=== PATIENT | male | born 1940 ===

== ENCOUNTER 2018-08-30 09:39 | Day surgery (SDC) | payer BC ==
--- NOTE | 2018-09-01 19:22 | CARDCATH ---
PROCEDURE DATE: 08/30/2018 PROCEDURES: 1. Left heart catheterization. 2. Coronary angiogram. CLINICAL INDICATIONS: 1. Unstable angina. 2. Coronary artery disease. 3. Atrial fibrillation. 4. Hypertension. 5. Hyperlipidemia. 6. Acute on chronic diastolic heart failure. REFERRING PHYSICIAN: Anai Pressley MD PERFORMING PHYSICIAN: Marco A Ross MD DESCRIPTION OF PROCEDURE: After informed consent, the patient was prepped and draped in the usual sterile fashion. Lidocaine 2% was given on the right groin for local anesthesia. Using micropuncture technique, a 6-[place]ian sheath was introduced into the right common femoral artery. A JR4 6-[place]ian diagnostic catheter crossed into left ventricle. LV and diastolic pressures measured. Contrast injected and LV angiogram was done. Then the catheter was pulled back across the aortic valve. Gradient across the aortic valve was measured. Then, the same catheter engaged in his right coronary artery. Contrast injected and right coronary angiogram was done. Then, the catheter was exchanged to 6-[place]ian JL4 diagnostic catheter. The catheter was engaged into left main coronary artery. Contrast injected and left coronary angiogram was done. The patient tolerated the procedure well. Post procedure, Perclose suture deployed in the right groin with excellent hemostasis. FINDINGS OF THE CATHETERIZATION: 1. Left main coronary artery is patent. 2. LAD has a mid 99% critical stenosis. Distal LAD has a long 95% stenosis. Diagonal branches are patent. 3. Left circumflex and obtuse marginal branches are patent. 4. Right coronary artery is dominant. R2 right coronary artery has 50% stenosis. Mid right coronary artery has a calcific 85% stenosis. Distal right coronary and PDA branches are patent. IMPRESSION: 1. Critical 2-vessel coronary artery disease as described above. 2. Decreased left ventricular function by left ventricular angiography estimated left ventricular ejection fraction is 40% to 45%. Anterolateral wall hypokinesis. EDP is 20. No gradient across the aortic valve. RECOMMENDATIONS: Recommend coronary intervention of both LAD and right coronary artery. Transfer the patient to intensive care unit on IV heparin drip. Marco A Ross MD
== END 2018-08-30 09:40 | disposition still patient (30) ==
LOC: C.CATHLAB 09:39
PROVIDERS: ATTEND Internal Medicine Cardiovascular Disease
DX: I25.110 Atherosclerotic heart disease of native coronary artery with unstable angina pectoris (principal); I48.91 Unspecified atrial fibrillation; I50.33 Acute on chronic diastolic (congestive) heart failure; E78.5 Hyperlipidemia, unspecified; I11.0 Hypertensive heart disease with heart failure

== ENCOUNTER 2018-08-30 09:58 | Inpatient (IN) | payer MEDICARE, BC ==
[2018-08-30 10:09] VITALS: BMI 28.1
--- NOTE | 2018-08-30 10:17 | C.PDOC ---
History Of Present Illness 78 year old male presents to the ED for evaluation of worsening chest pain for the past several weeks with associated shortness of breath. Patient is currently asymptomatic. Reports he normally has exertional and intermittent chest pain but this time is more prolonged and stronger. Patient is scheduled today to have cardiac catheterization and he was walking through the parking lot [employer] when the chest pain started. Notes he has a history of irregular heartbeat. Patient takes Nitro TID PRN. Denies increased usage of medication compared to usual. NPO since last night. Time Seen by Provider: 08/30/18 10:13 Chief Complaint (Nursing): Chest Pain History Per: Patient History/Exam Limitations: no limitations Onset/Duration Of Symptoms: Hrs Current Symptoms Are (Timing): Still Present Past Medical History Reviewed: Historical Data, Nursing Documentation, Vital Signs - Medical History PMH: Diabetes, HTN, Hypercholesterolemia Denies: Chronic Kidney Disease Other Surgeries: Hx of surgeries Family History: States: Hypertension - Social History Hx Tobacco Use: No Hx Alcohol Use: Yes Hx Substance Use: No - Immunization History Hx Tetanus Toxoid Vaccination: No Hx Influenza Vaccination: No Hx Pneumococcal Vaccination: No Review Of Systems Except As Marked, All Systems Reviewed And Found Negative. Constitutional: Negative for: Fever, Chills Cardiovascular: Positive for: Chest Pain Respiratory: Positive for: Shortness of Breath. Negative for: Cough Gastrointestinal: Negative for: Nausea, Vomiting Physical Exam - Physical Exam Appears: Non-toxic, No Acute Distress Skin: Warm, Dry, No Rash Head: Normacephalic Eye(s): bilateral: Normal Inspection Nose: Normal Oral Mucosa: Moist Neck: Normal ROM, Supple Chest: Symmetrical Cardiovascular: Rhythm Regular Respiratory: No Rales, No Rhonchi, No Wheezing, Other (NARD) Gastrointestinal/Abdominal: Soft, No Tenderness Extremity: Bilateral: Atraumatic, Normal Color And Temperature, Normal ROM Neurological/Psych: Oriented x3, Normal Speech Gait: Steady Extremity: Right: No Effort Against [place] ED Course And Treatment ECG: Interpreted By Me ECG Rhythm: Atrial Fibrillation ECG Interpretation: No Acute Changes Rate From EC O2 Sat by Pulse Oximetry: 100 (RA) Pulse Ox Interpretation: Normal Progress - Re-Evaluation Re-evaluation Note: 08/30/18 10:15 D/W ROCIO WILL IN ER. STATES NOTIFIED PT PMD DR EASTON TO BE ADMITTED, FOR CARDIAC CATH. ASA, PLAVIX 08/30/18 10:[address] THORNE, D/W DR MONTALVO BUT IS AWAY. STATES TO ADMIT TO HOSPITAL, DR BEVERLY NOTIFIED BY DR THORNE AND ACCEPTS FOR ADMISSION. - Data Reviewed Data Reviewed: Lab, Diagnostic imaging, EKG, Old records Medical Decision Making Medical Decision Making: Plan - Bloodwork - EKG - Aspirin 324mg PO - Plavix 300mg PO Disposition Counseled Patient/Family Regarding: Studies Performed, Diagnosis - Disposition Disposition: HOSPITALIZED Disposition Time: 10:17 Condition: STABLE Forms: [employer] (Belarusian) - POA Present On Arrival: None - Clinical Impression Clinical Impression: Unstable angina - Scribe Statement The provider has reviewed the documentation as recorded by the Scribe Luz Alcaraz All medical record entries made by the Christelleibe were at my direction and personally dictated by me. I have reviewed the chart and agree that the record accurately reflects my personal performance of the history, physical exam, medical decision making, and the department course for this patient. I have also personally directed, reviewed, and agree with the discharge instructions and disposition.
--- NOTE | 2018-08-30 10:30 | C.PDOC ---
History Of Present Illness 78 year old male presents to the ED for evaluation of worsening chest pain for the past several weeks with associated shortness of breath. Patient is currently asymptomatic. Reports he normally has exertional and intermittent chest pain but this time is more prolonged and stronger. 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 Notes he has a history of irregular heartbeat. Patient takes Nitro TID PRN. Denies increased usage of medication compared to usual. NPO since last night. Time Seen by Provider: 08/30/18 10:13 Chief Complaint (Nursing): Chest Pain History Per: Patient History/Exam Limitations: no limitations Onset/Duration Of Symptoms: Hrs Current Symptoms Are (Timing): Still Present Past Medical History Reviewed: Historical Data, Nursing Documentation, Vital Signs - Medical History PMH: Diabetes, HTN, Hypercholesterolemia Denies: Chronic Kidney Disease Surgical History: Denies: No Surg Hx Other Surgeries: Hx of surgeries Family History: States: Hypertension - Social History Hx Tobacco Use: No Hx Alcohol Use: Yes Hx Substance Use: No - Immunization History Hx Tetanus Toxoid Vaccination: No Hx Influenza Vaccination: No Hx Pneumococcal Vaccination: No Review Of Systems Except As Marked, All Systems Reviewed And Found Negative. Constitutional: Negative for: Fever, Chills Cardiovascular: Positive for: Chest Pain Respiratory: Positive for: Shortness of Breath. Negative for: Cough Gastrointestinal: Negative for: Nausea, Vomiting Physical Exam - Physical Exam Appears: Non-toxic, No Acute Distress Skin: Warm, Dry, No Rash Head: Normacephalic Eye(s): bilateral: Normal Inspection Nose: Normal Oral Mucosa: Moist Neck: Normal ROM, Supple Chest: Symmetrical Cardiovascular: No Murmur Respiratory: No Rales, No Rhonchi, No Wheezing, Other (NARD) Gastrointestinal/Abdominal: Soft, No Tenderness Extremity: Bilateral: Atraumatic, Normal Color And Temperature, Normal ROM Neurological/Psych: Oriented x3, Normal Speech Gait: Steady Disposition - Disposition Forms: [employer] (Hebrew) - Scribe Statement The provider has reviewed the documentation as recorded by the Scribe Luz Alcaraz All medical record entries made by the Scribe were at my direction and personally dictated by me. I have reviewed the chart and agree that the record accurately reflects my personal performance of the history, physical exam, medical decision making, and the department course for this patient. I have also personally directed, reviewed, and agree with the discharge instructions and disposition.
--- NOTE | 2018-08-30 10:53 | CP.PCM.CON ---
<Dotty Way - Last Filed: 08/30/18 12:55> History of Present Illness - History of Present Illness History of Present Illness: CARDIOLOGY CONSULT NOTE This is a 78 year old male with past medical history of unstable angina with previous abnormal stress test (08/06/18), atrial fibrillation, hypertension, systolic heart failure with LVEF 40%, type 2 diabetes, former heavy tobacco user, hypothyroidism, and BPH, referred to our service by ED physician Dr. Saunders, for unstable angina. Patient was ambulating from parking lot to the hospital when he started to have chest pain; he is scheduled for cardiac catherization today at [address] Ross. EKG did not show ST elevations or depressions, 1st troponin negative. 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 Patient reported his chest pain felt better after receiving medication and once he rested. Denied any current chest pain, shortness of breath, palpitations, dizziness, or nausea. PMHx: As noted above PSHx: Appendectomy All: Nuclear dye SHx: Used to smoke 1 PPD for 40 years, denied alcohol or illicit drug use FHx: Unremarkable PMD: Dr. Pressley (asked patient to be admitted to hospitalist service) Review of Systems - Constitutional Constitutional: absent: Chills, Fever - EENT Eyes: absent: Blurred Vision, Change in Vision Ears: absent: Ear Pain, Tinnitus Nose/Mouth/Throat: absent: Nasal Congestion, Sore Throat, Neck Pain - Cardiovascular Cardiovascular: Chest Pain with Activity, Irregular Heart Rhythm. absent: Diaphoresis, Dyspnea, Dyspnea on Exertion, Edema, Pain Radiating to Arm/Neck/Jaw, Palpitations, Pedal Edema, Radiating Pain, Rapid Heart Rate - Gastrointestinal Gastrointestinal: absent: Abdominal Pain, Diarrhea, Nausea, Vomiting - Genitourinary Genitourinary: Urinary Frequency. absent: Dysuria, Hematuria Additional comments: hx BPH - Musculoskeletal Musculoskeletal: absent: Abnormal Gait, Back Pain, Muscle Weakness - Neurological Neurological: absent: Abnormal Gait, Dizziness, Numbness, Syncope, Weakness - Psychiatric Psychiatric: absent: Anxiety, Suicidal Ideation - Hematologic/Lymphatic Hematologic: absent: Easy Bleeding, Easy Bruising, Lymphadenopathy Past Patient History - Infectious Disease Hx of Infectious Diseases: None - Past Medical History & Family History Past Medical History?: Yes - Past Social History Smoking Status: Former Smoker - CARDIAC Hx Hypercholesterolemia: Yes Hx Hypertension: Yes - PULMONARY Hx Respiratory Disorders: No - NEUROLOGICAL Hx Neurological Disorder: No - HEENT Hx HEENT Problems: No - RENAL Hx Chronic Kidney Disease: No - ENDOCRINE/METABOLIC Hx Endocrine Disorders: Yes Hx Diabetes Mellitus Type 2: Yes - HEMATOLOGICAL/ONCOLOGICAL Hx Blood Disorders: No - INTEGUMENTARY Hx Dermatological Problems: No - MUSCULOSKELETAL/RHEUMATOLOGICAL Hx Falls: No - GASTROINTESTINAL Hx Gastrointestinal Disorders: No - GENITOURINARY/GYNECOLOGICAL Hx Genitourinary Disorders: No - PSYCHIATRIC Hx Substance Use: No - SURGICAL HISTORY Hx Surgeries: Yes Hx Arteriovenous Shunt: Yes Hx Orthopedic Surgery: Yes Other/Comment: multiple hx of surgery. abdominal x 2. foot surgery due to CA, melanoma. appendectomy - ANESTHESIA Hx Anesthesia: Yes Hx Anesthesia Reactions: No Hx Malignant Hyperthermia: No Meds Allergies/Adverse Reactions: Allergies Allergy/AdvReac Type Severity Reaction Status Date / Time nuclear dye allergy Allergy Uncoded 08/30/18 10:08 Physical Exam - Constitutional Appears: No Acute Distress - Head Exam Head Exam: NORMAL INSPECTION, NORMOCEPHALIC - Eye Exam Eye Exam: EOMI, Normal appearance, PERRL - ENT Exam ENT Exam: Mucous Membranes Moist - Respiratory Exam Respiratory Exam: Clear to Auscultation Bilateral, NORMAL BREATHING PATTERN. absent: Decreased Breath Sounds - Cardiovascular Exam Cardiovascular Exam: Irregular Rhythm. absent: Systolic Murmur - GI/Abdominal Exam GI & Abdominal Exam: Normal Bowel Sounds, Soft. absent: Distended, Tenderness - Extremities Exam Extremities exam: Positive for: normal inspection, pedal pulses present. Negative for: pedal edema, tenderness - Neurological Exam Neurological exam: Alert, Oriented x3 - Psychiatric Exam Psychiatric exam: Normal Affect, Normal Mood - Skin Skin Exam: Dry, Intact, Normal Color, Warm Results - Vital Signs Recent Vital Signs: Last Vital Signs Temp 97.9 F 08/30/18 10:16 Pulse 98 H 08/30/18 10:16 Resp 20 08/30/18 10:16 BP 174/94 H 08/30/18 10:16 Pulse Ox 100 08/30/18 10:36 - Labs Result Diagrams: 08/30/18 11:07 08/30/18 11:07 Assessment & Plan - Assessment and Plan (Free Text) Plan: Unstable Angina Comorbidities: hypertension, type 2 diabetes, systolic heart failure with LVEF 40%, atrial fibrillation, hypothyroidism Imaging: - ECHO (04/2018): systolic heart failure with LVEF 40-45% - Nuclear Stress Test: abnormal noted 08/06/18 - Repeat ECHO: ordered, pending results - Carotid US: ordered, pending results - S/P catherization 08/30 Management: - ASA, Plavix, Coreg, Cozaar, Crestor - Hold off on any AC, due to elevated INR; continue to trend INR - Monitor right groin, for possible bleeding - Bedrest 6 hours, 1/2 NS @ 60cc/hr for 12 hours; monitor renal function - S/P catherization: LVEF 40%, 99% LAD, 80% RCA - Plan for PCI placement, date and time TBD Case discussed with Dr. Ross, Dotty Way DO, PGY2 <Marco A Ross - Last Filed: 08/30/18 13:46> Meds - Medications Medications: Current Medications Alprazolam (Xanax) 0.25 mg PO TID PRN PRN Reason: Anxiety Stop: 09/06/18 12:26 Aspirin (Ecotrin) 81 mg PO DAILY SHANELLE Carvedilol (Coreg) 12.5 mg PO BID SHANELLE Clopidogrel Bisulfate (Plavix) 75 mg PO DAILY SHANELLE Dextrose (Dextrose 50% Inj) 0 ml IV STAT PRN; Protocol PRN Reason: Hypoglycemia Protocol Dextrose (Glutose 15) 0 gm PO ONCE PRN; Protocol PRN Reason: Hypoglycemia Protocol Glimepiride (Amaryl) 1 mg PO DAILY SHANELLE Glucagon (Glucagen Diagnostic Kit) 0 mg IM STAT PRN; Protocol PRN Reason: Hypoglycemia Protocol Dextrose (Dextrose 5% In Water 1000 Ml) 1,000 mls @ 0 mls/hr IV .Q0M PRN; Protocol PRN Reason: Hypoglycemia Protocol Sodium Chloride (Sodium Chloride 0.45%) 1,000 mls @ 60 mls/hr IV .[id number] SHANELLE Stop: 08/31/18 01:01 Insulin Human Regular (Novolin R) 0 unit SC ACHS SHANELLE; Protocol Levothyroxine Sodium (Synthroid) 125 mcg PO DAILY@0630 SHANELLE Losartan Potassium (Cozaar) 100 mg PO DAILY SHANELLE Pantoprazole Sodium (Protonix Ec Tab) 40 mg PO DAILY SHANELLE Rosuvastatin Calcium (Crestor) 10 mg PO HS SHANELLE Results - Vital Signs Recent Vital Signs: Last Vital Signs Temp 97.8 F 08/30/18 11:13 Pulse 92 H 08/30/18 11:13 Resp 18 08/30/18 11:13 BP 148/90 08/30/18 11:13 Pulse Ox 96 08/30/18 11:13 - Labs Result Diagrams: 08/30/18 11:07 08/30/18 11:07 Labs: Laboratory Results - last 24 hr 08/30/18 08/30/18 08/30/18 11:07 11:07 11:07 WBC 6.2 RBC 5.39 Hgb 14.6 D Hct 44.0 MCV 81.7 D MCH 27.1 MCHC 33.1 RDW 15.1 H Plt Count 93 L MPV 8.8 Neut % (Auto) 61.8 Lymph % (Auto) 10.4 L [place] % (Auto) 26.0 H Eos % (Auto) 0.6 Baso % (Auto) 1.2 Neut # (Auto) 3.8 Lymph # (Auto) 0.6 L [place] # (Auto) 1.6 H Eos # (Auto) 0.0 Baso # (Auto) 0.1 Neutrophils % (Manual) 61 Lymphocytes % (Manual) 10 L Monocytes % (Manual) 28 H Eosinophils % (Manual) 1 Platelet Estimate Slightly decreased L RBC Morphology Normal PT 28.4 H INR 2.6 APTT 53 H Sodium 141 Potassium 4.4 Chloride 100 Carbon Dioxide 31 H Anion Gap 15 BUN 14 Creatinine 0.6 L Est GFR ( Amer) > 60 Est GFR (Non-Af Amer) > 60 POC Glucose (mg/dL) Random Glucose 159 H Hemoglobin A1c Calcium 9.1 Total Bilirubin 0.9 AST 28 ALT 26 Alkaline Phosphatase 109 Troponin I < 0.0120 Total Protein 7.6 Albumin 4.7 Globulin 2.9 Albumin/Globulin Ratio 1.6 Triglycerides 157 H Cholesterol 104 LDL Cholesterol Direct 65 HDL Cholesterol 24 L TSH 3rd Generation 1.37 Blood Type Antibody Screen 08/30/18 08/30/18 08/30/18 11:07 11:26 13:18 WBC RBC Hgb Hct MCV MCH MCHC RDW Plt Count MPV Neut % (Auto) Lymph % (Auto) [place] % (Auto) Eos % (Auto) Baso % (Auto) Neut # (Auto) Lymph # (Auto) [place] # (Auto) Eos # (Auto) Baso # (Auto) Neutrophils % (Manual) Lymphocytes % (Manual) Monocytes % (Manual) Eosinophils % (Manual) Platelet Estimate RBC Morphology PT INR APTT Sodium Potassium Chloride Carbon Dioxide Anion Gap BUN Creatinine Est GFR ( Amer) Est GFR (Non-Af Amer) POC Glucose (mg/dL) 156 H Random Glucose Hemoglobin A1c 6.9 H Calcium Total Bilirubin AST ALT Alkaline Phosphatase Troponin I Total Protein Albumin Globulin Albumin/Globulin Ratio Triglycerides Cholesterol LDL Cholesterol Direct HDL Cholesterol TSH 3rd Generation Blood Type O POSITIVE Antibody Screen Negative Assessment & Plan - Assessment and Plan (Free Text) Plan: Patient seen and evaluated s/p cardiac cath Findings as above D/W the patient
--- NOTE | 2018-08-30 10:58 | CP.PCM.HP ---
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 He takes Nitrates TID for the pain which temporaily relives the pain but he is worried this is getting worse. PMD: Dr. 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, BPH, Afib PSH: Appendectomy, GI related surgery for obstruction Allergies: NKDA Fam Hx: Unknown, pt has not been in contact with his family in a while Social Hx: Denies tobacco, alcohol, drug use Present on Admission - Present on Admission Any Indicators Present on Admission: No Review of Systems - Hematologic/Lymphatic Additional comments: - Constitutional Constitutional: absent: Chills, Fever - EENT Eyes: absent: Blurred Vision, Change in Vision Ears: absent: Ear Pain, Tinnitus Nose/Mouth/Throat: absent: Nasal Congestion, Sore Throat, Neck Pain - Cardiovascular Cardiovascular: Chest Pain with Activity, Irregular Heart Rhythm. absent: Diaphoresis, Dyspnea, Dyspnea on Exertion, Edema, Pain Radiating to Arm/Neck/Jaw, Palpitations, Pedal Edema, Radiating Pain, Rapid Heart Rate - Gastrointestinal Gastrointestinal: absent: Abdominal Pain, Diarrhea, Nausea, Vomiting - Genitourinary Genitourinary: Urinary Frequency. absent: Dysuria, Hematuria Additional comments: hx BPH - Musculoskeletal Musculoskeletal: absent: Abnormal Gait, Back Pain, Muscle Weakness - Neurological Neurological: absent: Abnormal Gait, Dizziness, Numbness, Syncope, Weakness - Psychiatric Psychiatric: absent: Anxiety, Suicidal Ideation - Hematologic/Lymphatic Hematologic: absent: Easy Bleeding, Easy Bruising, Lymphadenopathy Past Patient History - Infectious Disease Hx of Infectious Diseases: None - Past Medical History & Family History Past Medical History?: Yes - Past Social History Smoking Status: Former Smoker - CARDIAC Hx Hypercholesterolemia: Yes Hx Hypertension: Yes - PULMONARY Hx Respiratory Disorders: No - NEUROLOGICAL Hx Neurological Disorder: No - HEENT Hx HEENT Problems: No - RENAL Hx Chronic Kidney Disease: No - ENDOCRINE/METABOLIC Hx Endocrine Disorders: Yes Hx Diabetes Mellitus Type 2: Yes - HEMATOLOGICAL/ONCOLOGICAL Hx Blood Disorders: No - INTEGUMENTARY Hx Dermatological Problems: No - MUSCULOSKELETAL/RHEUMATOLOGICAL Hx Falls: No - GASTROINTESTINAL Hx Gastrointestinal Disorders: No - GENITOURINARY/GYNECOLOGICAL Hx Genitourinary Disorders: No - PSYCHIATRIC Hx Substance Use: No - SURGICAL HISTORY Hx Surgeries: Yes Hx Arteriovenous Shunt: Yes Hx Orthopedic Surgery: Yes Other/Comment: multiple hx of surgery. abdominal x 2. foot surgery due to CA, melanoma. appendectomy - ANESTHESIA Hx Anesthesia: Yes Hx Anesthesia Reactions: No Hx Malignant Hyperthermia: No Meds Allergies/Adverse Reactions: Allergies Allergy/AdvReac Type Severity Reaction Status Date / Time nuclear dye allergy Allergy Uncoded 08/30/18 10:08 Physical Exam - Constitutional Appears: Well, Non-toxic - Head Exam Head Exam: ATRAUMATIC, NORMAL INSPECTION - Eye Exam Eye Exam: EOMI - ENT Exam ENT Exam: Mucous Membranes Moist, Normal Exam - Neck Exam Neck exam: Positive for: Normal Inspection - Respiratory Exam Respiratory Exam: NORMAL BREATHING PATTERN. absent: Wheezes - Cardiovascular Exam Cardiovascular Exam: Irregular Rhythm, +S1, +S2 - GI/Abdominal Exam GI & Abdominal Exam: absent: Distended, Firm, Guarding, Tenderness - Extremities Exam Extremities exam: Positive for: normal inspection - Back Exam Back exam: NORMAL INSPECTION - Neurological Exam Neurological exam: Alert, CN II-XII Intact, Normal Gait, Oriented x3 - Psychiatric Exam Psychiatric exam: Normal Affect, Normal Mood - Skin Skin Exam: Normal Color Results - Vital Signs Recent Vital Signs: Last Vital Signs Temp 97.9 F 08/30/18 10:16 Pulse 98 H 08/30/18 10:16 Resp 20 08/30/18 10:16 BP 174/94 H 08/30/18 10:16 Pulse Ox 100 08/30/18 10:42 - Labs Result Diagrams: 08/30/18 11:07 08/30/18 11:07 Assessment & Plan - Assessment and Plan (Free Text) Assessment: This is a 78 year old male with past medical history of unstable angina with previous abnormal stress test (08/06/18), atrial fibrillation, hypertension, systolic heart failure with LVEF 40%, type 2 diabetes, former heavy tobacco user, hypothyroidism, and BPH, presenting with unstable angina. Patient is s/p cardiac catheterization on 08/30/2018. Plan: Unstable Angina - Cardiology consulted, Dr. Ross - ECHO (04/2018): systolic heart failure with LVEF 40-45% - Nuclear Stress Test: abnormal noted 08/06/18 - Troponin: <0.01 - Continue to trend Troponin - Repeat ECHO: ordered, pending results - Carotid US: ordered, pending results - S/P catherization 08/30 LAD, RCA occlusions - ASA 81mg PO QD - Plavix 74mg PO QD - Coreg 12.5 PO BID - Bedrest 6 hours, 1/2 NS @ 60cc/hr for 12 hours; monitor renal function S/P catherization - LVEF 40%, 99% LAD, 80% RCA - Plan for PCI placement, date and time TBD - Monitor right groin, for possible bleeding Hypertension - Cozaar 100mg PO QD - Continue to monitor - NS @ 60 mls/hr DM-2 - ISS - Accuchecks ACHS - Hypoglycemia protocol Hypothyroidism - Synthroid 125mg PO QD Hyperlipidemia - Crestor 10mg PO HS - Triglycerides: 157 Prophylaxis: - Protonix 40mg PO QD - SCD's - Hold off on any AC, due to elevated INR
[2018-08-30 11:18] LABS: BASO # 0.1 K/uL (0.0-0.2); BASO % 1.2 % (0.0-2.0); EOS % 0.6 % (0.0-4.0); LYMPH # 0.6 K/uL (1.0-4.3); LYMPH % 10.4 % (20.0-40.0); MEAN CELL VOLUME 81.7 fL (80.0-94.0); MEAN CORPUSCULAR HEMOGLOBIN 27.1 pg (27.0-31.0); MEAN CORPUSCULAR HGB CONC 33.1 g/dL (33.0-37.0); MEAN PLATELET VOLUME 8.8 fL (7.2-11.7); MONO # 1.6 K/uL (0.0-0.8); NEUT # 3.8 K/uL (1.8-7.0); NEUT % 61.8 % (50.0-75.0); NRBC % 0.4 % (0.0-2.0); RBC 5.39 Mil/uL (4.40-5.90); RED CELL DISTRIBUTION WIDTH 15.1 % (11.5-14.5); WHITE BLOOD COUNT 6.2 K/uL (4.8-10.8)
[2018-08-30] MEDS ORDERED: Iodixanol 320 MG/ML 100 ML BOTTLE IV ONE ×2 (11:22→11:28)
[2018-08-30 11:24] LABS: HEMOGLOBIN 14.6 g/dL (12.0-18.0); PLATELET COUNT 93 K/uL (130-400)
[2018-08-30] MEDS ORDERED: Lidocaine 2% MPF (5 ml) Inj ONE (11:28)
[2018-08-30] MEDS ORDERED: DiphenhydrAMINE 50 mg/ml Inj IVP ONE (11:30)
--- NOTE | 2018-08-30 11:34 | RAD ---
Date of service: 08/30/2018 HISTORY: chest pain COMPARISON: Comparison made with prior chest radiograph 06/17/2015. FINDINGS: LUNGS: Persistent elevation right hemidiaphragm possibly due to eventration. There is mild left basilar atelectasis and with questionable chronic pleural thickening. Minimal right basilar atelectasis. PLEURA: No significant pleural effusion identified, no pneumothorax apparent. CARDIOVASCULAR: Minor aortic atherosclerotic calcification present. Heart appears mildly enlarged the no pulmonary vascular congestion. OSSEOUS STRUCTURES: No significant abnormalities. VISUALIZED UPPER ABDOMEN: Normal. OTHER FINDINGS: None. IMPRESSION: Persistent elevation right hemidiaphragm possibly due to eventration. There is mild left basilar atelectasis and with questionable chronic pleural thickening. Minimal right basilar atelectasis.
[2018-08-30 11:36] LABS: ALB/GLOB RATIO 1.6 (1.0-2.1); ALBUMIN 4.7 g/dL (3.5-5.0); ALT/SGPT 26 U/L (21-72); AST/SGOT 28 U/L (17-59); BLOOD UREA NITROGEN 14 mg/dL (9-20); CALCIUM 9.1 mg/dl (8.6-10.4); GFR NON-AFRICAN AMERICAN > 60
[2018-08-30 11:47] LABS: INR 2.6; PROTHROMBIN TIME 28.4 SECONDS (9.7-12.2)
[2018-08-30] MEDS ORDERED: Midazolam 2 MG/2 ML VIAL ONE (11:48)
[2018-08-30 11:56] LABS: EOSINOPHIL 1 % (0-4); LYMPHOCYTE 10 % (20-40); MONOCYTE 28 % (0-10); NEUTROPHIL 61 % (50-75); TOTAL CELLS COUNTED 100
[2018-08-30] MEDS ORDERED: Phytonadione 10 mg/ml Inj (Adult) IV STA (11:56)
[2018-08-30 11:58] LABS: PLATELET ESTIMATE SLIGHTLY DECREASED (NORMAL)
[2018-08-30] MEDS ORDERED: Labetalol 5mg/ml (4ml) ONE (12:02)
[2018-08-30] MEDS ORDERED: Phytonadione 10 MG in Sodium Chloride 0.9% 50 ML IV ONE (12:15)
[2018-08-30] MEDS ORDERED: Dextrose 50% SYRINGE Inj (50 ml) IV PRN (12:27)
[2018-08-30 12:28] LABS: HDL CHOLESTEROL 24 mg/dL (30-70); LDL CHOLESTEROL 65 mg/dL (0-129)
[2018-08-30] MEDS ORDERED: Glucagon Recombinant 1 mg Inj IM PRN (12:28)
[2018-08-30] MEDS ORDERED: Sodium Chloride 0.45% 1,000 ML IV SCH (13:00)
--- NOTE | 2018-08-30 16:59 | CP.PCM.CON ---
<Adonay Cowan - Last Filed: 08/30/18 16:56> History of Present Illness - History of Present Illness History of Present Illness: PGY-1 ICU consult note for Dr. Esvin Emmanuel CC: Unstable angina This is a 78 year old male with past medical history of unstable angina with previous abnormal stress test (08/06/18), atrial fibrillation, hypertension, systolic heart failure with LVEF 40%, type 2 diabetes, former heavy tobacco user, hypothyroidism, and BPH, presenting with unstable angina. Patient was ambulating from parking lot to the hospital when he started to have chest pain; patient had cardiac catherization today at [address] Ross. EKG did not show ST elevations or depressions, 1st troponin negative. Patient was given aspirin and plavix, and was brought up to the research laboratory manager. Patient reported his chest pain felt better after receiving medication and once he rested. Denied any current chest pain, shortness of breath, palpitations, abdominal pain, dizziness, nausea, comiting, diarrhea, or urinary symptoms. 12 points ROS reviewed, negative except stated in HPI. PMHx: unstable angina with previous abnormal stress test (08/06/18), atrial fibrillation, hypertension, systolic heart failure with LVEF 40%, type 2 diabetes, former heavy tobacco user, hypothyroidism, and BPH PSHx: Appendectomy All: Nuclear dye SHx: Used to smoke 1 PPD for 40 years, denied alcohol or illicit drug use FHx: Unremarkable PMD: Dr. Pressley Review of Systems - Review of Systems All systems: reviewed and no additional remarkable complaints except Past Patient History - Infectious Disease Hx of Infectious Diseases: None - Past Medical History & Family History Past Medical History?: Yes - Past Social History Smoking Status: Former Smoker - CARDIAC Hx Hypercholesterolemia: Yes Hx Hypertension: Yes - PULMONARY Hx Respiratory Disorders: No - NEUROLOGICAL Hx Neurological Disorder: No - HEENT Hx HEENT Problems: No - RENAL Hx Chronic Kidney Disease: No - ENDOCRINE/METABOLIC Hx Endocrine Disorders: Yes Hx Diabetes Mellitus Type 2: Yes - HEMATOLOGICAL/ONCOLOGICAL Hx Blood Disorders: No - INTEGUMENTARY Hx Dermatological Problems: No - MUSCULOSKELETAL/RHEUMATOLOGICAL Hx Falls: No - GASTROINTESTINAL Hx Gastrointestinal Disorders: No - GENITOURINARY/GYNECOLOGICAL Hx Genitourinary Disorders: No - PSYCHIATRIC Hx Substance Use: No - SURGICAL HISTORY Hx Surgeries: Yes Hx Arteriovenous Shunt: Yes Hx Orthopedic Surgery: Yes Other/Comment: multiple hx of surgery. abdominal x 2. foot surgery due to CA, melanoma. appendectomy - ANESTHESIA Hx Anesthesia: Yes Hx Anesthesia Reactions: No Hx Malignant Hyperthermia: No Meds Allergies/Adverse Reactions: Allergies Allergy/AdvReac Type Severity Reaction Status Date / Time nuclear dye allergy Allergy Uncoded 08/30/18 10:08 - Medications Medications: Current Medications Alprazolam (Xanax) 0.25 mg PO TID PRN PRN Reason: Anxiety Stop: 09/06/18 12:26 Aspirin (Ecotrin) 81 mg PO DAILY [facility] Carvedilol (Coreg) 12.5 mg PO BID [facility] Clopidogrel Bisulfate (Plavix) 75 mg PO DAILY [facility] Dextrose (Dextrose 50% Inj) 0 ml IV STAT PRN; Protocol PRN Reason: Hypoglycemia Protocol Dextrose (Glutose 15) 0 gm PO ONCE PRN; Protocol PRN Reason: Hypoglycemia Protocol Glimepiride (Amaryl) 1 mg PO DAILY [facility] Glucagon (Glucagen Diagnostic Kit) 0 mg IM STAT PRN; Protocol PRN Reason: Hypoglycemia Protocol Dextrose (Dextrose 5% In Water 1000 Ml) 1,000 mls @ 0 mls/hr IV .Q0M PRN; Protocol PRN Reason: Hypoglycemia Protocol Sodium Chloride (Sodium Chloride 0.45%) 1,000 mls @ 60 mls/hr IV .[id number] [facility] Stop: 08/31/18 01:01 Last Admin: 08/30/18 15:00 Dose: 60 mls/hr Insulin Human Regular (Novolin R) 0 unit SC ACHS [facility]; Protocol Levothyroxine Sodium (Synthroid) 125 mcg PO DAILY@0630 [facility] Losartan Potassium (Cozaar) 100 mg PO DAILY [facility] Pantoprazole Sodium (Protonix Ec Tab) 40 mg PO DAILY [facility] Rosuvastatin Calcium (Crestor) 10 mg PO HS [facility] Physical Exam - Additional Findings Additional findings: - Constitutional Appears: No Acute Distress - Head Exam Head Exam: NORMAL INSPECTION, NORMOCEPHALIC - Eye Exam Eye Exam: EOMI, Normal appearance, PERRL - ENT Exam ENT Exam: Mucous Membranes Moist - Respiratory Exam Respiratory Exam: Clear to Auscultation Bilateral, NORMAL BREATHING PATTERN. absent: Decreased Breath Sounds - Cardiovascular Exam Cardiovascular Exam: Irregular Rhythm. absent: Systolic Murmur - GI/Abdominal Exam GI & Abdominal Exam: Normal Bowel Sounds, Soft. absent: Distended, Tenderness - Extremities Exam Extremities exam: Positive for: normal inspection, pedal pulses present. Negative for: pedal edema, tenderness - Neurological Exam Neurological exam: Alert, Oriented x3 - Psychiatric Exam Psychiatric exam: Normal Affect, Normal Mood - Skin Skin Exam: Dry, Intact, Normal Color, Warm Results - Vital Signs Recent Vital Signs: Last Vital Signs Temp 97.8 F 08/30/18 11:13 Pulse 86 08/30/18 15:13 Resp 16 08/30/18 15:13 BP 148/90 08/30/18 11:13 Pulse Ox 94 L 08/30/18 15:13 - Labs Result Diagrams: 08/30/18 11:07 08/30/18 11:07 Labs: Laboratory Results - last 24 hr 08/30/18 08/30/18 08/30/18 11:07 11:07 11:07 WBC 6.2 RBC 5.39 Hgb 14.6 D Hct 44.0 MCV 81.7 D MCH 27.1 MCHC 33.1 RDW 15.1 H Plt Count 93 L MPV 8.8 Neut % (Auto) 61.8 Lymph % (Auto) 10.4 L [place] % (Auto) 26.0 H Eos % (Auto) 0.6 Baso % (Auto) 1.2 Neut # (Auto) 3.8 Lymph # (Auto) 0.6 L [place] # (Auto) 1.6 H Eos # (Auto) 0.0 Baso # (Auto) 0.1 Neutrophils % (Manual) 61 Lymphocytes % (Manual) 10 L Monocytes % (Manual) 28 H Eosinophils % (Manual) 1 Platelet Estimate Slightly decreased L RBC Morphology Normal PT 28.4 H INR 2.6 APTT 53 H Sodium 141 Potassium 4.4 Chloride 100 Carbon Dioxide 31 H Anion Gap 15 BUN 14 Creatinine 0.6 L Est GFR ( Amer) > 60 Est GFR (Non-Af Amer) > 60 POC Glucose (mg/dL) Random Glucose 159 H Hemoglobin A1c Calcium 9.1 Total Bilirubin 0.9 AST 28 ALT 26 Alkaline Phosphatase 109 Troponin I < 0.0120 Total Protein 7.6 Albumin 4.7 Globulin 2.9 Albumin/Globulin Ratio 1.6 Triglycerides 157 H Cholesterol 104 LDL Cholesterol Direct 65 HDL Cholesterol 24 L TSH 3rd Generation 1.37 Blood Type Antibody Screen 08/30/18 08/30/18 08/30/18 11:07 11:26 13:18 WBC RBC Hgb Hct MCV MCH MCHC RDW Plt Count MPV Neut % (Auto) Lymph % (Auto) [place] % (Auto) Eos % (Auto) Baso % (Auto) Neut # (Auto) Lymph # (Auto) [place] # (Auto) Eos # (Auto) Baso # (Auto) Neutrophils % (Manual) Lymphocytes % (Manual) Monocytes % (Manual) Eosinophils % (Manual) Platelet Estimate RBC Morphology PT INR APTT Sodium Potassium Chloride Carbon Dioxide Anion Gap BUN Creatinine Est GFR ( Amer) Est GFR (Non-Af Amer) POC Glucose (mg/dL) 156 H Random Glucose Hemoglobin A1c 6.9 H Calcium Total Bilirubin AST ALT Alkaline Phosphatase Troponin I Total Protein Albumin Globulin Albumin/Globulin Ratio Triglycerides Cholesterol LDL Cholesterol Direct HDL Cholesterol TSH 3rd Generation Blood Type O POSITIVE Antibody Screen Negative 08/30/18 16:24 WBC RBC Hgb Hct MCV MCH MCHC RDW Plt Count MPV Neut % (Auto) Lymph % (Auto) [place] % (Auto) Eos % (Auto) Baso % (Auto) Neut # (Auto) Lymph # (Auto) [place] # (Auto) Eos # (Auto) Baso # (Auto) Neutrophils % (Manual) Lymphocytes % (Manual) Monocytes % (Manual) Eosinophils % (Manual) Platelet Estimate RBC Morphology PT INR APTT Sodium Potassium Chloride Carbon Dioxide Anion Gap BUN Creatinine Est GFR ( Amer) Est GFR (Non-Af Amer) POC Glucose (mg/dL) 259 H Random Glucose Hemoglobin A1c Calcium Total Bilirubin AST ALT Alkaline Phosphatase Troponin I Total Protein Albumin Globulin Albumin/Globulin Ratio Triglycerides Cholesterol LDL Cholesterol Direct HDL Cholesterol TSH 3rd Generation Blood Type Antibody Screen Assessment & Plan - Assessment and Plan (Free Text) Assessment: This is a 78 year old male with past medical history of unstable angina with previous abnormal stress test (08/06/18), atrial fibrillation, hypertension, systolic heart failure with LVEF 40%, type 2 diabetes, former heavy tobacco user, hypothyroidism, and BPH, presenting with unstable angina. Patient is s/p cardiac catheterization on 08/30/2018. Plan: Neuro: - Patient is AAO X 3 Cardiovascular: Unstable Angina - Cardiology consulted, Dr. Ross - ECHO (04/2018): systolic heart failure with LVEF 40-45% - Nuclear Stress Test: abnormal noted 08/06/18 - Troponin: <0.01 - Continue to trend Troponin - Repeat ECHO: ordered, pending results - Carotid US: ordered, pending results - S/P catherization 08/30 - ASA 81mg PO QD - Plavix 74mg PO QD - Coreg 12.5 PO BID - Bedrest 6 hours, 1/2 NS @ 60cc/hr for 12 hours; monitor renal function - S/P catherization: LVEF 40%, 99% LAD, 80% RCA - Plan for PCI placement, date and time TBD Pulm: - No acute issues GI: - No acute issues Renal: Hypertension - Cozaar 100mg PO QD - Continue to monitor - NS @ 60 mls/hr Endocrine: Hypothyroidism - Synthroid 125mg PO QD Hyperlipidemia - Crestor 10mg PO HS - Triglycerides: 157 DM-2 - ISS - Accuchecks ACHS - Hypoglycemia protocol Heme: Therapeutic INR - INR:2.6 - Continue to monitor INR Skin: Bleeding - S/p cardiac cath - Monitor right groin, for possible bleeding Prophylaxis: - Protonix 40mg PO QD - SCD's - Hold off on any AC, due to elevated INR Case discussed with Dr. Esvin Cowan, PGY-1 <Daya Emmanuel - Last Filed: 08/31/18 10:37> Meds - Medications Medications: Current Medications Alprazolam (Xanax) 0.25 mg PO TID PRN PRN Reason: Anxiety Stop: 09/06/18 12:26 Last Admin: 08/30/18 22:24 Dose: 0.25 mg Aspirin (Ecotrin) 81 mg PO DAILY [facility] Last Admin: 08/31/18 10:18 Dose: 81 mg Benzocaine/Menthol (Cepacol Sore Throat) 1 cinthia MT Q4H PRN PRN Reason: Sore Throat Last Admin: 08/30/18 21:06 Dose: 1 cinthia Carvedilol (Coreg) 12.5 mg PO BID [facility] Last Admin: 08/31/18 10:18 Dose: 12.5 mg Clopidogrel Bisulfate (Plavix) 75 mg PO DAILY [facility] Last Admin: 08/31/18 10:18 Dose: 75 mg Dextrose (Dextrose 50% Inj) 0 ml IV STAT PRN; Protocol PRN Reason: Hypoglycemia Protocol Dextrose (Glutose 15) 0 gm PO ONCE PRN; Protocol PRN Reason: Hypoglycemia Protocol Glimepiride (Amaryl) 1 mg PO DAILY [facility] Last Admin: 08/31/18 10:17 Dose: 1 mg Glucagon (Glucagen Diagnostic Kit) 0 mg IM STAT PRN; Protocol PRN Reason: Hypoglycemia Protocol Dextrose (Dextrose 5% In Water 1000 Ml) 1,000 mls @ 0 mls/hr IV .Q0M PRN; Protocol PRN Reason: Hypoglycemia Protocol Insulin Human Regular (Novolin R) 0 unit SC [facility]; Protocol Last Admin: 08/30/18 22:24 Dose: 2 units Levothyroxine Sodium (Synthroid) 125 mcg PO DAILY@0630 [facility] Last Admin: 08/31/18 07:22 Dose: 125 mcg Losartan Potassium (Cozaar) 100 mg PO DAILY [facility] Last Admin: 08/31/18 10:18 Dose: 100 mg Nitroglycerin (Nitrostat Sl Tab) 0.4 mg SL Q5M PRN PRN Reason: Pain, Mild (1-3) Pantoprazole Sodium (Protonix Ec Tab) 40 mg PO DAILY [facility] Last Admin: 08/31/18 10:18 Dose: 40 mg Rosuvastatin Calcium (Crestor) 10 mg PO HS [facility] Last Admin: 08/30/18 22:24 Dose: 10 mg Tamsulosin HCl (Flomax) 0.4 mg PO DAILY [facility] Last Admin: 08/31/18 10:18 Dose: 0.4 mg Results - Vital Signs Recent Vital Signs: Last Vital Signs Temp 98.2 F 08/30/18 15:00 Pulse 86 08/31/18 07:45 Resp 20 08/31/18 07:45 BP 148/67 08/31/18 10:18 Pulse Ox 98 08/31/18 07:45 - Labs Result Diagrams: 08/31/18 06:23 08/31/18 03:29 Labs: Laboratory Results - last 24 hr 08/30/18 08/30/18 08/30/18 11:07 11:07 11:07 WBC 6.2 RBC 5.39 Hgb 14.6 D Hct 44.0 MCV 81.7 D MCH 27.1 MCHC 33.1 RDW 15.1 H Plt Count 93 L MPV 8.8 Neut % (Auto) 61.8 Lymph % (Auto) 10.4 L [place] % (Auto) 26.0 H Eos % (Auto) 0.6 Baso % (Auto) 1.2 Neut # (Auto) 3.8 Lymph # (Auto) 0.6 L [place] # (Auto) 1.6 H Eos # (Auto) 0.0 Baso # (Auto) 0.1 Neutrophils % (Manual) 61 Lymphocytes % (Manual) 10 L Monocytes % (Manual) 28 H Eosinophils % (Manual) 1 Platelet Estimate Slightly decreased L Large Platelets RBC Morphology Normal Polychromasia Anisocytosis (manual) PT 28.4 H INR 2.6 APTT 53 H Sodium 141 Potassium 4.4 Chloride 100 Carbon Dioxide 31 H Anion Gap 15 BUN 14 Creatinine 0.6 L Est GFR ( Amer) > 60 Est GFR (Non-Af Amer) > 60 POC Glucose (mg/dL) Random Glucose 159 H Hemoglobin A1c Calcium 9.1 Phosphorus Magnesium Total Bilirubin 0.9 AST 28 ALT 26 Alkaline Phosphatase 109 Total Creatine Kinase CK-MB (Mass) Troponin I < 0.0120 Total Protein 7.6 Albumin 4.7 Globulin 2.9 Albumin/Globulin Ratio 1.6 Triglycerides 157 H Cholesterol 104 LDL Cholesterol Direct 65 HDL Cholesterol 24 L Free T4 TSH 3rd Generation 1.37 Blood Type Antibody Screen 08/30/18 08/30/18 08/30/18 11:07 11:26 13:18 WBC RBC Hgb Hct MCV MCH MCHC RDW Plt Count MPV Neut % (Auto) Lymph % (Auto) [place] % (Auto) Eos % (Auto) Baso % (Auto) Neut # (Auto) Lymph # (Auto) [place] # (Auto) Eos # (Auto) Baso # (Auto) Neutrophils % (Manual) Lymphocytes % (Manual) Monocytes % (Manual) Eosinophils % (Manual) Platelet Estimate Large Platelets RBC Morphology Polychromasia Anisocytosis (manual) PT INR APTT Sodium Potassium Chloride Carbon Dioxide Anion Gap BUN Creatinine Est GFR ( Amer) Est GFR (Non-Af Amer) POC Glucose (mg/dL) 156 H Random Glucose Hemoglobin A1c 6.9 H Calcium Phosphorus Magnesium Total Bilirubin AST ALT Alkaline Phosphatase Total Creatine Kinase CK-MB (Mass) Troponin I Total Protein Albumin Globulin Albumin/Globulin Ratio Triglycerides Cholesterol LDL Cholesterol Direct HDL Cholesterol Free T4 TSH 3rd Generation Blood Type O POSITIVE Antibody Screen Negative 08/30/18 08/30/18 08/30/18 16:24 18:40 18:40 WBC RBC Hgb Hct MCV MCH MCHC RDW Plt Count MPV Neut % (Auto) Lymph % (Auto) [place] % (Auto) Eos % (Auto) Baso % (Auto) Neut # (Auto) Lymph # (Auto) [place] # (Auto) Eos # (Auto) Baso # (Auto) Neutrophils % (Manual) Lymphocytes % (Manual) Monocytes % (Manual) Eosinophils % (Manual) Platelet Estimate Large Platelets RBC Morphology Polychromasia Anisocytosis (manual) PT INR APTT Sodium Potassium Chloride Carbon Dioxide Anion Gap BUN Creatinine Est GFR ( Amer) Est GFR (Non-Af Amer) POC Glucose (mg/dL) 259 H Random Glucose Hemoglobin A1c Calcium Phosphorus Magnesium Total Bilirubin AST ALT Alkaline Phosphatase Total Creatine Kinase 30 L CK-MB (Mass) 0.84 Troponin I < 0.0120 Total Protein Albumin Globulin Albumin/Globulin Ratio Triglycerides Cholesterol LDL Cholesterol Direct HDL Cholesterol Free T4 1.65 TSH 3rd Generation Blood Type Antibody Screen 08/30/18 08/30/18 08/31/18 21:24 22:37 03:29 WBC RBC Hgb Hct MCV MCH MCHC RDW Plt Count MPV Neut % (Auto) Lymph % (Auto) [place] % (Auto) Eos % (Auto) Baso % (Auto) Neut # (Auto) Lymph # (Auto) [place] # (Auto) Eos # (Auto) Baso # (Auto) Neutrophils % (Manual) Lymphocytes % (Manual) Monocytes % (Manual) Eosinophils % (Manual) Platelet Estimate Large Platelets RBC Morphology Polychromasia Anisocytosis (manual) PT 16.7 H D INR 1.5 D APTT Sodium 137 Potassium 4.0 Chloride 99 Carbon Dioxide 24 Anion Gap 17 BUN 20 Creatinine 0.7 L Est GFR ( Amer) > 60 Est GFR (Non-Af Amer) > 60 POC Glucose (mg/dL) 367 H Random Glucose 327 H Hemoglobin A1c Calcium 8.2 L Phosphorus 2.8 Magnesium 1.9 Total Bilirubin 0.7 AST 21 ALT 26 Alkaline Phosphatase 86 Total Creatine Kinase 39 L CK-MB (Mass) 0.80 Troponin I < 0.0120 Total Protein 6.3 Albumin 3.8 Globulin 2.5 Albumin/Globulin Ratio 1.5 Triglycerides Cholesterol LDL Cholesterol Direct HDL Cholesterol Free T4 TSH 3rd Generation Blood Type Antibody Screen 08/31/18 06:23 WBC 10.3 D RBC 4.60 Hgb 12.6 D Hct 37.6 MCV 81.7 MCH 27.4 MCHC 33.6 RDW 15.2 H Plt Count 91 L MPV 9.0 Neut % (Auto) 82.5 H Lymph % (Auto) 4.1 L [place] % (Auto) 13.0 H Eos % (Auto) 0.0 Baso % (Auto) 0.4 Neut # (Auto) 8.5 H Lymph # (Auto) 0.4 L [place] # (Auto) 1.3 H Eos # (Auto) 0.0 Baso # (Auto) 0.0 Neutrophils % (Manual) 83 H Lymphocytes % (Manual) 6 L Monocytes % (Manual) 11 H Eosinophils % (Manual) Platelet Estimate Decreased L Large Platelets Present RBC Morphology Polychromasia Slight Anisocytosis (manual) Slight PT INR APTT Sodium Potassium Chloride Carbon Dioxide Anion Gap BUN Creatinine Est GFR ( Amer) Est GFR (Non-Af Amer) POC Glucose (mg/dL) Random Glucose Hemoglobin A1c Calcium Phosphorus Magnesium Total Bilirubin AST ALT Alkaline Phosphatase Total Creatine Kinase CK-MB (Mass) Troponin I Total Protein Albumin Globulin Albumin/Globulin Ratio Triglycerides Cholesterol LDL Cholesterol Direct HDL Cholesterol Free T4 TSH 3rd Generation Blood Type Antibody Screen Assessment & Plan - Assessment and Plan (Free Text) Plan: [facility] Deb s/p cardiac cath -pending PCI -continue to treat as per cardiology -patient remains hemodynamically stable above resident docuemnts my management an physical exam -transfer to tele in 24 hours - Date & Time Date: 08/30/18 Time: 10:37
[2018-08-30] MEDS ORDERED: Nitroglycerin 50mg in D5W 50 MG/250 ML BOTTLE IV SCH (18:15)
[2018-08-30] MEDS: (Novolin R) Insulin Human Regular 100 units/ml vial SC SCH ×2 (18:54→22:24)
[2018-08-30 19:11] LABS: CK-MB 0.84 ng/mL (0.0-3.38)
[2018-08-30] MEDS: Benzocaine/Menthol (Cepacol) Lozenge MT PRN (21:06)
[2018-08-30 22:49] LABS: INR 1.5; PROTHROMBIN TIME 16.7 SECONDS (9.7-12.2)
[2018-08-31 03:44] LABS: ALB/GLOB RATIO 1.5 (1.0-2.1); ALBUMIN 3.8 g/dL (3.5-5.0); ALT/SGPT 26 U/L (21-72); AST/SGOT 21 U/L (17-59); BLOOD UREA NITROGEN 20 mg/dL (9-20); CALCIUM 8.2 mg/dl (8.6-10.4); GFR NON-AFRICAN AMERICAN > 60
[2018-08-31 06:32] LABS: BASO % 0.4 % (0.0-2.0); HEMOGLOBIN 12.6 g/dL (12.0-18.0); LYMPH # 0.4 K/uL (1.0-4.3); LYMPH % 4.1 % (20.0-40.0); MEAN CELL VOLUME 81.7 fL (80.0-94.0); MEAN CORPUSCULAR HEMOGLOBIN 27.4 pg (27.0-31.0); MEAN CORPUSCULAR HGB CONC 33.6 g/dL (33.0-37.0); MONO # 1.3 K/uL (0.0-0.8); NEUT # 8.5 K/uL (1.8-7.0); NEUT % 82.5 % (50.0-75.0); NRBC % 0.1 % (0.0-2.0); PLATELET COUNT 91 K/uL (130-400); RED CELL DISTRIBUTION WIDTH 15.2 % (11.5-14.5); WHITE BLOOD COUNT 10.3 K/uL (4.8-10.8)
[2018-08-31] MEDS: Levothyroxine 125 MCG TAB PO SCH (07:22)
[2018-08-31] MEDS: (Novolin R) Insulin Human Regular 100 units/ml vial SC SCH ×4 (08:25→22:25)
--- NOTE | 2018-08-31 09:33 | CP.PCM.PN ---
Subjective - Date & Time of Evaluation Date of Evaluation: 08/31/18 Time of Evaluation: 09:30 - Subjective Subjective: Seen and examined by me. Patient had chest pain last night and started on tridil drip,He had hard time sleeping. This morning sitting and watching TV,Denies pain patient has history of lower back pain and leg pain since 2005. He was told that he has arthritis He is in afib INR is 1.5 Groin dressing intact. Objective - Vital Signs/Intake and Output Vital Signs (last 24 hours): Temp Pulse Resp BP Pulse Ox 98.2 F 86 20 117/59 L 98 08/30/18 15:00 08/31/18 07:45 08/31/18 07:45 08/31/18 07:08 08/31/18 07:45 Intake and Output: 08/31/18 08/31/18 06:59 18:59 Intake Total 1251 4 Output Total 625 0 Balance 626 4 - Medications Medications: Current Medications Alprazolam (Xanax) 0.25 mg PO TID PRN PRN Reason: Anxiety Stop: 09/06/18 12:26 Last Admin: 08/30/18 22:24 Dose: 0.25 mg Aspirin (Ecotrin) 81 mg PO DAILY [facility] Benzocaine/Menthol (Cepacol Sore Throat) 1 cinthia MT Q4H PRN PRN Reason: Sore Throat Last Admin: 08/30/18 21:06 Dose: 1 cinthia Carvedilol (Coreg) 12.5 mg PO BID [facility] Last Admin: 08/30/18 18:52 Dose: 12.5 mg Clopidogrel Bisulfate (Plavix) 75 mg PO DAILY [facility] Dextrose (Dextrose 50% Inj) 0 ml IV STAT PRN; Protocol PRN Reason: Hypoglycemia Protocol Dextrose (Glutose 15) 0 gm PO ONCE PRN; Protocol PRN Reason: Hypoglycemia Protocol Glimepiride (Amaryl) 1 mg PO DAILY [facility] Glucagon (Glucagen Diagnostic Kit) 0 mg IM STAT PRN; Protocol PRN Reason: Hypoglycemia Protocol Dextrose (Dextrose 5% In Water 1000 Ml) 1,000 mls @ 0 mls/hr IV .Q0M PRN; Protocol PRN Reason: Hypoglycemia Protocol Insulin Human Regular (Novolin R) 0 unit SC ACHS [facility]; Protocol Last Admin: 08/30/18 22:24 Dose: 2 units Levothyroxine Sodium (Synthroid) 125 mcg PO DAILY@0630 [facility] Last Admin: 08/31/18 07:22 Dose: 125 mcg Losartan Potassium (Cozaar) 100 mg PO DAILY [facility] Nitroglycerin (Nitrostat Sl Tab) 0.4 mg SL Q5M PRN PRN Reason: Pain, Mild (1-3) Pantoprazole Sodium (Protonix Ec Tab) 40 mg PO DAILY [facility] Rosuvastatin Calcium (Crestor) 10 mg PO HS [facility] Last Admin: 08/30/18 22:24 Dose: 10 mg Tamsulosin HCl (Flomax) 0.4 mg PO DAILY [facility] - Labs Labs: 08/31/18 06:23 08/31/18 03:29 PT 16.7 SECONDS (9.7-12.2) H D 08/30/18 22:37 INR 1.5 D 08/30/18 22:37 APTT 53 SECONDS (21-34) H 08/30/18 11:07 - Constitutional Appears: Non-toxic, No Acute Distress - Head Exam Head Exam: NORMAL INSPECTION - Eye Exam Eye Exam: Normal appearance - ENT Exam ENT Exam: Mucous Membranes Moist - Neck Exam Neck Exam: Full ROM - Respiratory Exam Respiratory Exam: Clear to Ausculation Bilateral, NORMAL BREATHING PATTERN - Cardiovascular Exam Cardiovascular Exam: Irregular Rhythm - GI/Abdominal Exam GI & Abdominal Exam: Soft, Normal Bowel Sounds - Extremities Exam Extremities Exam: Full ROM - Back Exam Back Exam: NORMAL INSPECTION - Neurological Exam Neurological Exam: Awake, Oriented x3 - Psychiatric Exam Psychiatric exam: Normal Mood - Skin Skin Exam: Dry Assessment and Plan - Assessment and Plan (Free Text) Assessment: 78yo male with past history of Hypothyroidism, hypertension, diabetes, 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 He had Cardiac cath yesterday Plan: 1. Unstable Angina and S/P catherization LVEF 40%, 99% LAD, 80% RCA we will discuss with DR Ross about the Plan/ PCI placement Monitor right groin, for possible bleeding continue asprin,plavix , coreg 12.5 bid ,crestor and Cozaar Today creatinine and hemoglobin is ok INR 1.5,start on heparin 2. Hypertension Cozaar 100mg PO QD 3.Atrial fibrillation INR 1.5 start on heparin 4. DM-2 Accuchecks ACHS with insulin coverage - Hypoglycemia protocol 5. Hypothyroidism Synthroid 125mg PO QD 6. Hyperlipidemia Crestor 10mg PO HS Prophylaxis: Protonix 40mg PO QD SCD's start on heparin
[2018-08-31 09:58] LABS: ANISOCYTOSIS SLIGHT; LYMPHOCYTE 6 % (20-40); MONOCYTE 11 % (0-10); NEUTROPHIL 83 % (50-75); PLATELET ESTIMATE DECREASED (NORMAL); TOTAL CELLS COUNTED 100
[2018-08-31 10:02] LABS: LARGE PLATELETS PRESENT
[2018-08-31 10:03] LABS: POLYCHROMIC SLIGHT
[2018-08-31] MEDS: Pantoprazole 40 mg EC Tab PO SCH (10:18)
--- NOTE | 2018-08-31 14:47 | CARD ---
APPROVED REPORT Date of service: 08/30/2018 EXAM: Two-dimensional and M-mode echocardiogram with Doppler and color Doppler. Other Information Quality : TDSRhythm : INDICATION Cardiac Disease: CAD Chest Pain 2D DIMENSIONS IVSd0.9 (0.7-1.1cm)LVDd4.8 (3.9-5.9cm) PWd1.0 (0.7-1.1cm)LA Evipdf38 (18-58mL) LVDs3.8 (2.5-4.0cm)FS (%) 20.2 % LVEF (%)41.3 (>50%)LVEF (Friedman's)50 % M-Mode DIMENSIONS Left Atrium (MM)3.90 (2.5-4.0cm)IVSd1.07 (0.7-1.1cm) Aortic Root3.33 (2.2-3.7cm)LVDd5.17 (4.0-5.6cm) Aortic Cusp Exc.1.92 (1.5-2.0cm)PWd0.95 (0.7-1.1cm) FS (%) 24 %LVDs3.92 (2.0-3.8cm) TAPSE8.87 cmLVEF (%)55 (>50%) Mitral Valve MV E Gxugorxx86.6cm/sMV A Nqdbthya48.0cm/sE/A ratio2.8 TDI Lateral E' Peak V8.29cm/sMedial E' Peak V8.42cm/sE/Lateral E'9.5 E/Medial E'9.3 LEFT VENTRICLE The left ventricle is normal size. There is normal left ventricular wall thickness. Left ventricle systolic function is mildly to moderately impaired. The Ejection Fraction is 40-45%. There is normal LV segmental wall motion. The left ventricular diastolic function is normal. No left ventricle thrombus noted on this study. RIGHT VENTRICLE The right ventricle is normal size. The right ventricular systolic function is normal. ATRIA The left atrium size is normal. The right atrium size is normal. AORTIC VALVE The aortic valve is mildly sclerotic. No aortic regurgitation is present. There is no aortic valvular stenosis. There is no aortic valvular vegetation. MITRAL VALVE Mitral annular calcification is mild. There is no evidence of mitral valve prolapse. There is no mitral valve stenosis. Mitral regurgitation is mild. TRICUSPID VALVE The tricuspid valve is not well visualized. PULMONIC VALVE The pulmonic valve is not well visualized. GREAT VESSELS The aortic root is not well visualized. PERICARDIAL EFFUSION There is no pericardial effusion. There is no pleural effusion. <Conclusion> The left ventricle is normal size. Left ventricle systolic function is mildly to moderately impaired. The Ejection Fraction is 40-45%. The left ventricular diastolic function is normal. The right ventricle is normal size. The right ventricular systolic function is normal. The left atrium size is normal. The right atrium size is normal. Mitral regurgitation is mild.
[2018-08-31] MEDS: Heparin25000 units/250ml 1/2NS 25,000 UNITS/250 ML BAG IV PRN (18:21)
--- NOTE | 2018-08-31 21:19 | CP.PCM.PN ---
Subjective - Date & Time of Evaluation Date of Evaluation: 08/31/18 Time of Evaluation: 18:30 - Subjective Subjective: Patient seen and evaluated Episode of chest pain today relieved with IV NTG drip Now off NTG drip and chest pain free Review of Systems - Constitutional Constitutional: absent: Chills, Fever - EENT Eyes: absent: Blurred Vision, Change in Vision Ears: absent: Ear Pain, Tinnitus Nose/Mouth/Throat: absent: Nasal Congestion, Sore Throat, Neck Pain - Cardiovascular Cardiovascular: Chest Pain with Activity, Irregular Heart Rhythm. absent: Diap horesis, Dyspnea, Dyspnea on Exertion, Edema, Pain Radiating to Arm/Neck/Jaw, Palpitations, Pedal Edema, Radiating Pain, Rapid Heart Rate - Gastrointestinal Gastrointestinal: absent: Abdominal Pain, Diarrhea, Nausea, Vomiting - Genitourinary Genitourinary: Urinary Frequency. absent: Dysuria, Hematuria Additional comments: hx BPH - Musculoskeletal Musculoskeletal: absent: Abnormal Gait, Back Pain, Muscle Weakness - Neurological Neurological: absent: Abnormal Gait, Dizziness, Numbness, Syncope, Weakness - Psychiatric Psychiatric: absent: Anxiety, Suicidal Ideation - Hematologic/Lymphatic Hematologic: absent: Easy Bleeding, Easy Bruising, Lymphadenopathy Physical Exam - Constitutional Appears: No Acute Distress - Head Exam Head Exam: NORMAL INSPECTION, NORMOCEPHALIC - Eye Exam Eye Exam: EOMI, Normal appearance, PERRL - ENT Exam ENT Exam: Mucous Membranes Moist - Respiratory Exam Respiratory Exam: Clear to Auscultation Bilateral, NORMAL BREATHING PATTERN. absent: Decreased Breath Sounds - Cardiovascular Exam Cardiovascular Exam: Irregular Rhythm. absent: Systolic Murmur - GI/Abdominal Exam GI & Abdominal Exam: Normal Bowel Sounds, Soft. absent: Distended, Tenderness - Extremities Exam Extremities exam: Positive for: normal inspection, pedal pulses present. 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%) IV Nitro ASA and Plavix For PCI on Sunday at [place] [facility] No physical therapy for now IV Nitro if recurrent chest pain Please do not transfer the patient out of ICU until prior d/w with me Thank you Objective - Vital Signs/Intake and Output Vital Signs (last 24 hours): Temp Pulse Resp BP Pulse Ox 98.2 F 79 17 147/88 98 08/30/18 15:00 08/31/18 19:02 08/31/18 19:02 08/31/18 18:29 08/31/18 10:15 Intake and Output: 08/31/18 09/01/18 18:59 06:59 Intake Total 4 Output Total 0 Balance 4 - Medications Medications: Current Medications Alprazolam (Xanax) 0.25 mg PO TID PRN PRN Reason: Anxiety Stop: 09/06/18 12:26 Last Admin: 08/31/18 18:29 Dose: 0.25 mg Aspirin (Ecotrin) 81 mg PO DAILY [facility] Last Admin: 08/31/18 10:18 Dose: 81 mg Benzocaine/Menthol (Cepacol Sore Throat) 1 cinthia MT Q4H PRN PRN Reason: Sore Throat Last Admin: 08/30/18 21:06 Dose: 1 cinthia Carvedilol (Coreg) 12.5 mg PO BID [facility] Last Admin: 08/31/18 18:29 Dose: 12.5 mg Clopidogrel Bisulfate (Plavix) 75 mg PO DAILY [facility] Last Admin: 08/31/18 10:18 Dose: 75 mg Dextrose (Dextrose 50% Inj) 0 ml IV STAT PRN; Protocol PRN Reason: Hypoglycemia Protocol Dextrose (Glutose 15) 0 gm PO ONCE PRN; Protocol PRN Reason: Hypoglycemia Protocol Glimepiride (Amaryl) 1 mg PO DAILY [facility] Last Admin: 08/31/18 10:17 Dose: 1 mg Glucagon (Glucagen Diagnostic Kit) 0 mg IM STAT PRN; Protocol PRN Reason: Hypoglycemia Protocol Dextrose (Dextrose 5% In Water 1000 Ml) 1,000 mls @ 0 mls/hr IV .Q0M PRN; Protocol PRN Reason: Hypoglycemia Protocol Heparin Sodium/Sodium Chloride (Heparin 19821 Units/250ml 1/2 Normal Saline) 25,000 units in 250 mls @ 10.056 mls/hr IV .Q24H PRN; Protocol PRN Reason: ADJUST RATE PER PROTOCOL Last Admin: 08/31/18 18:21 Dose: 12 units/kg/hr, 10.056 mls/hr Insulin Human Regular (Novolin R) 0 [facility] SC [facility]; Protocol Last Admin: 08/31/18 18:30 Dose: 1 units Levothyroxine Sodium (Synthroid) 125 mcg PO DAILY@0630 [facility] Last Admin: 08/31/18 07:22 Dose: 125 mcg Losartan Potassium (Cozaar) 100 mg PO DAILY [facility] Last Admin: 08/31/18 10:18 Dose: 100 mg Nitroglycerin (Nitrostat Sl Tab) 0.4 mg SL Q5M PRN PRN Reason: Pain, Mild (1-3) Pantoprazole Sodium (Protonix Ec Tab) 40 mg PO DAILY [facility] Last Admin: 08/31/18 10:18 Dose: 40 mg Rosuvastatin Calcium (Crestor) 10 mg PO HS [facility] Last Admin: 08/30/18 22:24 Dose: 10 mg Tamsulosin HCl (Flomax) 0.4 mg PO DAILY [facility] Last Admin: 08/31/18 10:18 Dose: 0.4 mg - Labs Labs: 08/31/18 06:23 08/31/18 03:29 PT 16.7 SECONDS (9.7-12.2) H D 08/30/18 22:37 INR 1.5 D 08/30/18 22:37 APTT 53 SECONDS (21-34) H 08/30/18 11:07
[2018-08-31] MEDS ORDERED: Magnesium Hydroxide Susp 30 ml UD PO PRN (21:35)
[2018-08-31] MEDS: Benzocaine/Menthol (Cepacol) Lozenge MT PRN (22:27)
[2018-09-01 04:58] LABS: BASO # 0.1 K/uL (0.0-0.2); BASO % 0.8 % (0.0-2.0); HEMOGLOBIN 13.4 g/dL (12.0-18.0); LYMPH # 0.9 K/uL (1.0-4.3); MEAN CORPUSCULAR HEMOGLOBIN 26.9 pg (27.0-31.0); MEAN CORPUSCULAR HGB CONC 33.2 g/dL (33.0-37.0); MEAN PLATELET VOLUME 9.2 fL (7.2-11.7); MONO # 1.8 K/uL (0.0-0.8); MONO % 18.5 % (0.0-10.0); NEUT # 6.7 K/uL (1.8-7.0); NEUT % 70.7 % (50.0-75.0); NRBC % 0.1 % (0.0-2.0); RBC 4.97 Mil/uL (4.40-5.90); WHITE BLOOD COUNT 9.5 K/uL (4.8-10.8)
[2018-09-01 05:14] LABS: ALB/GLOB RATIO 1.4 (1.0-2.1); ALBUMIN 3.7 g/dL (3.5-5.0); ALT/SGPT 24 U/L (21-72); AST/SGOT 21 U/L (17-59); BLOOD UREA NITROGEN 25 mg/dL (9-20); CALCIUM 8.3 mg/dl (8.6-10.4); GFR NON-AFRICAN AMERICAN > 60
[2018-09-01 05:26] LABS: INR 1.2; PROTHROMBIN TIME 12.7 SECONDS (9.7-12.2)
[2018-09-01] MEDS: Levothyroxine 125 MCG TAB PO SCH (05:55)
[2018-09-01] MEDS: (Novolin R) Insulin Human Regular 100 units/ml vial SC SCH ×4 (08:16→22:32)
--- NOTE | 2018-09-01 08:33 | CP.PCM.PN ---
Subjective - Date & Time of Evaluation Date of Evaluation: 09/01/18 Time of Evaluation: 08:33 - Subjective Subjective: Patient is lying on bed comfortable,denies chest pain,He was able to sleep last night after Xanax. No BM,Denies hematuria Platelets came down from 93 to 76.INR 1.2 Has Afib,He is on heparin drip,aspirin and plavix s/p Cath Going for PCI on Sunday Objective - Vital Signs/Intake and Output Vital Signs (last 24 hours): Temp Pulse Resp BP Pulse Ox 97.7 F 74 18 115/61 98 09/01/18 04:00 09/01/18 07:00 09/01/18 07:00 09/01/18 06:43 09/01/18 07:00 Intake and Output: 09/01/18 09/01/18 06:59 18:59 Intake Total 1020.7 7.5 Output Total 1850 Balance -829.3 7.5 - Medications Medications: Current Medications Alprazolam (Xanax) 0.25 mg PO TID PRN PRN Reason: Anxiety Stop: 09/06/18 12:26 Last Admin: 08/31/18 18:29 Dose: 0.25 mg Aspirin (Ecotrin) 81 mg PO DAILY [facility] Last Admin: 08/31/18 10:18 Dose: 81 mg Benzocaine/Menthol (Cepacol Sore Throat) 1 cinthia MT Q4H PRN PRN Reason: Sore Throat Last Admin: 08/31/18 22:27 Dose: 1 cinthia Carvedilol (Coreg) 12.5 mg PO BID [facility] Last Admin: 08/31/18 18:29 Dose: 12.5 mg Clopidogrel Bisulfate (Plavix) 75 mg PO DAILY [facility] Last Admin: 08/31/18 10:18 Dose: 75 mg Dextrose (Dextrose 50% Inj) 0 ml IV STAT PRN; Protocol PRN Reason: Hypoglycemia Protocol Dextrose (Glutose 15) 0 gm PO ONCE PRN; Protocol PRN Reason: Hypoglycemia Protocol Glimepiride (Amaryl) 1 mg PO DAILY [facility] Last Admin: 08/31/18 10:17 Dose: 1 mg Glucagon (Glucagen Diagnostic Kit) 0 mg IM STAT PRN; Protocol PRN Reason: Hypoglycemia Protocol Dextrose (Dextrose 5% In Water 1000 Ml) 1,000 mls @ 0 mls/hr IV .Q0M PRN; Protocol PRN Reason: Hypoglycemia Protocol Heparin Sodium/Sodium Chloride (Heparin 57462 Units/250ml 1/2 Normal Saline) 25,000 units in 250 mls @ 10.056 mls/hr IV .Q24H PRN; Protocol PRN Reason: ADJUST RATE PER PROTOCOL Last Titration: 09/01/18 06:45 Dose: 9 units/kg/hr, 7.542 mls/hr Insulin Human Regular (Novolin R) 0 unit SC ACHS [facility]; Protocol Last Admin: 08/31/18 22:25 Dose: Not Given Levothyroxine Sodium (Synthroid) 125 mcg PO DAILY@0630 [facility] Last Admin: 09/01/18 05:55 Dose: 125 mcg Losartan Potassium (Cozaar) 100 mg PO DAILY [facility] Last Admin: 08/31/18 10:18 Dose: 100 mg Magnesium Hydroxide (Milk Of Magnesia) 30 ml PO Q4H PRN PRN Reason: Constipation Nitroglycerin (Nitrostat Sl Tab) 0.4 mg SL Q5M PRN PRN Reason: Pain, Mild (1-3) Pantoprazole Sodium (Protonix Ec Tab) 40 mg PO DAILY [facility] Last Admin: 08/31/18 10:18 Dose: 40 mg Rosuvastatin Calcium (Crestor) 10 mg PO HS [facility] Last Admin: 08/31/18 22:20 Dose: 10 mg Tamsulosin HCl (Flomax) 0.4 mg PO DAILY [facility] Last Admin: 08/31/18 10:18 Dose: 0.4 mg - Labs Labs: 09/01/18 04:54 09/01/18 04:54 PT 12.7 SECONDS (9.7-12.2) H 09/01/18 04:54 INR 1.2 09/01/18 04:54 APTT 112 SECONDS (21-34) H* 09/01/18 04:54 - Constitutional Appears: No Acute Distress, Younger Than Stated Age - Head Exam Head Exam: NORMAL INSPECTION - Eye Exam Eye Exam: Normal appearance - ENT Exam ENT Exam: Mucous Membranes Moist - Neck Exam Neck Exam: Full ROM - Respiratory Exam Respiratory Exam: Clear to Ausculation Bilateral, NORMAL BREATHING PATTERN - Cardiovascular Exam Cardiovascular Exam: Irregular Rhythm - GI/Abdominal Exam GI & Abdominal Exam: Soft, Normal Bowel Sounds - Extremities Exam Extremities Exam: Full ROM - Back Exam Back Exam: NORMAL INSPECTION - Neurological Exam Neurological Exam: Awake, Oriented x3 - Psychiatric Exam Psychiatric exam: Normal Mood - Skin Skin Exam: Dry Assessment and Plan - Assessment and Plan (Free Text) Plan: 1. Unstable Angina and S/P catherization LVEF 40%, 99% LAD, 80% RCA Patient is going for PCI tomorrow He has low platelets,History of low platelets.Patient not aware of any platelet issues Discussed with Dr Mccall. 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 He agrees with continue heparin,plavix and asprin and monitor platelets per Dr Mccall patient should be ok to go for PCI .HIT panel ordered continue asprin,plavix , coreg 12.5 bid ,crestor and Cozaar 2.Thrombocytopenia follow Louie platelets count HTI panel Hematology consult 3. Hypertension Cozaar 100mg PO QD,coreg 4.Atrial fibrillation On Heparin 5. DM-2 Accuchecks ACHS with insulin coverage 6. Hypothyroidism Synthroid 125mg PO QD 7. Hyperlipidemia Crestor 10mg PO HS 8. Anxiety continue xanax Prophylaxis: Protonix 40mg and on heparin
[2018-09-01] MEDS ORDERED: Magnesium Citrate Oral SOL (300 ml) PO ONE (09:57)
[2018-09-01] MEDS: Pantoprazole 40 mg EC Tab PO SCH (10:17)
--- NOTE | 2018-09-01 11:46 | CP.PCM.PN ---
Subjective - Date & Time of Evaluation Date of Evaluation: 09/01/18 Time of Evaluation: 11:05 - Subjective Subjective: Dropping platelet count Consult Dr. Partha loza to r/o HIT Check mannual platelet count at 4pm today Objective - Vital Signs/Intake and Output Vital Signs (last 24 hours): Temp Pulse Resp BP Pulse Ox 97.7 F 74 18 138/78 98 09/01/18 04:00 09/01/18 07:00 09/01/18 07:00 09/01/18 10:15 09/01/18 07:00 Intake and Output: 09/01/18 09/01/18 06:59 18:59 Intake Total 1020.7 7.5 Output Total 1850 Balance -829.3 7.5 - Medications Medications: Current Medications Alprazolam (Xanax) 0.25 mg PO TID PRN PRN Reason: Anxiety Stop: 09/06/18 12:26 Last Admin: 08/31/18 18:29 Dose: 0.25 mg Aspirin (Ecotrin) 81 mg PO DAILY [facility] Last Admin: 09/01/18 10:15 Dose: 81 mg Benzocaine/Menthol (Cepacol Sore Throat) 1 cinthia MT Q4H PRN PRN Reason: Sore Throat Last Admin: 08/31/18 22:27 Dose: 1 cinthia Carvedilol (Coreg) 12.5 mg PO BID [facility] Last Admin: 09/01/18 10:15 Dose: 12.5 mg Clopidogrel Bisulfate (Plavix) 75 mg PO DAILY [facility] Last Admin: 09/01/18 10:15 Dose: 75 mg Dextrose (Dextrose 50% Inj) 0 ml IV STAT PRN; Protocol PRN Reason: Hypoglycemia Protocol Dextrose (Glutose 15) 0 gm PO ONCE PRN; Protocol PRN Reason: Hypoglycemia Protocol Glimepiride (Amaryl) 1 mg PO DAILY [facility] Last Admin: 09/01/18 10:15 Dose: 1 mg Glucagon (Glucagen Diagnostic Kit) 0 mg IM STAT PRN; Protocol PRN Reason: Hypoglycemia Protocol Dextrose (Dextrose 5% In Water 1000 Ml) 1,000 mls @ 0 mls/hr IV .Q0M PRN; Protocol PRN Reason: Hypoglycemia Protocol Heparin Sodium/Sodium Chloride (Heparin 84888 Units/250ml 1/2 Normal Saline) 25,000 units in 250 mls @ 10.056 mls/hr IV .Q24H PRN; Protocol PRN Reason: ADJUST RATE PER PROTOCOL Last Titration: 09/01/18 06:45 Dose: 9 units/kg/hr, 7.542 mls/hr Insulin Human Regular (Novolin R) 0 unit SC ACHS [facility]; Protocol Last Admin: 09/01/18 08:16 Dose: 1 units Levothyroxine Sodium (Synthroid) 125 mcg PO DAILY@0630 [facility] Last Admin: 09/01/18 05:55 Dose: 125 mcg Losartan Potassium (Cozaar) 100 mg PO DAILY [facility] Last Admin: 09/01/18 10:15 Dose: 100 mg Nitroglycerin (Nitrostat Sl Tab) 0.4 mg SL Q5M PRN PRN Reason: Pain, Mild (1-3) Pantoprazole Sodium (Protonix Ec Tab) 40 mg PO DAILY [facility] Last Admin: 09/01/18 10:17 Dose: 40 mg Rosuvastatin Calcium (Crestor) 10 mg PO HS [facility] Last Admin: 08/31/18 22:20 Dose: 10 mg Tamsulosin HCl (Flomax) 0.4 mg PO DAILY [facility] Last Admin: 09/01/18 10:17 Dose: Not Given - Labs Labs: 09/01/18 04:54 09/01/18 04:54 PT 12.7 SECONDS (9.7-12.2) H 09/01/18 04:54 INR 1.2 09/01/18 04:54 APTT 112 SECONDS (21-34) H* 09/01/18 04:54
[2018-09-01 13:10] LABS: BASO % 0.4 % (0.0-2.0); EOS % 0.1 % (0.0-4.0); HEMOGLOBIN 13.4 g/dL (12.0-18.0); LYMPH # 0.6 K/uL (1.0-4.3); LYMPH % 6.8 % (20.0-40.0); MEAN CELL VOLUME 82.2 fL (80.0-94.0); MEAN CORPUSCULAR HEMOGLOBIN 27.6 pg (27.0-31.0); MEAN CORPUSCULAR HGB CONC 33.6 g/dL (33.0-37.0); MEAN PLATELET VOLUME 9.4 fL (7.2-11.7); MONO # 1.7 K/uL (0.0-0.8); MONO % 19.5 % (0.0-10.0); NEUT # 6.5 K/uL (1.8-7.0); NEUT % 73.2 % (50.0-75.0); NRBC % 0.1 % (0.0-2.0); PLATELET COUNT 82 K/uL (130-400); RBC 4.87 Mil/uL (4.40-5.90); RED CELL DISTRIBUTION WIDTH 15.3 % (11.5-14.5); WHITE BLOOD COUNT 8.9 K/uL (4.8-10.8)
[2018-09-01 14:06] LABS: ANISOCYTOSIS SLIGHT; LYMPHOCYTE 6 % (20-40); MONOCYTE 19 % (0-10); NEUTROPHIL 75 % (50-75); PLATELET ESTIMATE DECREASED (NORMAL); TOTAL CELLS COUNTED 100
--- NOTE | 2018-09-01 17:48 | CP.PCM.PN ---
Subjective - Date & Time of Evaluation Date of Evaluation: 09/01/18 Time of Evaluation: 13:44 - Subjective Subjective: No events, no chest pain. Objective - Vital Signs/Intake and Output Vital Signs (last 24 hours): Temp Pulse Resp BP Pulse Ox 97.7 F 74 18 138/78 98 09/01/18 04:00 09/01/18 07:00 09/01/18 07:00 09/01/18 10:15 09/01/18 07:00 Intake and Output: 09/01/18 09/01/18 06:59 18:59 Intake Total 1020.7 7.5 Output Total 1850 Balance -829.3 7.5 - Medications Medications: Current Medications Alprazolam (Xanax) 0.25 mg PO TID PRN PRN Reason: Anxiety Stop: 09/06/18 12:26 Last Admin: 08/31/18 18:29 Dose: 0.25 mg Aspirin (Ecotrin) 81 mg PO DAILY [facility] Last Admin: 09/01/18 10:15 Dose: 81 mg Benzocaine/Menthol (Cepacol Sore Throat) 1 cinthia MT Q4H PRN PRN Reason: Sore Throat Last Admin: 08/31/18 22:27 Dose: 1 cinthia Carvedilol (Coreg) 12.5 mg PO BID [facility] Last Admin: 09/01/18 10:15 Dose: 12.5 mg Clopidogrel Bisulfate (Plavix) 75 mg PO DAILY [facility] Last Admin: 09/01/18 10:15 Dose: 75 mg Dextrose (Dextrose 50% Inj) 0 ml IV STAT PRN; Protocol PRN Reason: Hypoglycemia Protocol Dextrose (Glutose 15) 0 gm PO ONCE PRN; Protocol PRN Reason: Hypoglycemia Protocol Glimepiride (Amaryl) 1 mg PO DAILY [facility] Last Admin: 09/01/18 10:15 Dose: 1 mg Glucagon (Glucagen Diagnostic Kit) 0 mg IM STAT PRN; Protocol PRN Reason: Hypoglycemia Protocol Dextrose (Dextrose 5% In Water 1000 Ml) 1,000 mls @ 0 mls/hr IV .Q0M PRN; Protocol PRN Reason: Hypoglycemia Protocol Heparin Sodium/Sodium Chloride (Heparin 86504 Units/250ml 1/2 Normal Saline) 25,000 units in 250 mls @ 10.056 mls/hr IV .Q24H PRN; Protocol PRN Reason: ADJUST RATE PER PROTOCOL Last Titration: 09/01/18 06:45 Dose: 9 units/kg/hr, 7.542 mls/hr Insulin Human Regular (Novolin R) 0 unit SC ACHS [facility]; Protocol Last Admin: 09/01/18 08:16 Dose: 1 units Levothyroxine Sodium (Synthroid) 125 mcg PO DAILY@0630 [facility] Last Admin: 09/01/18 05:55 Dose: 125 mcg Losartan Potassium (Cozaar) 100 mg PO DAILY [facility] Last Admin: 09/01/18 10:15 Dose: 100 mg Nitroglycerin (Nitrostat Sl Tab) 0.4 mg SL Q5M PRN PRN Reason: Pain, Mild (1-3) Pantoprazole Sodium (Protonix Ec Tab) 40 mg PO DAILY [facility] Last Admin: 09/01/18 10:17 Dose: 40 mg Rosuvastatin Calcium (Crestor) 10 mg PO HS [facility] Last Admin: 08/31/18 22:20 Dose: 10 mg Tamsulosin HCl (Flomax) 0.4 mg PO DAILY [facility] Last Admin: 09/01/18 10:17 Dose: Not Given - Labs Labs: 09/01/18 13:03 09/01/18 04:54 PT 12.7 SECONDS (9.7-12.2) H 09/01/18 04:54 INR 1.2 09/01/18 04:54 APTT 58 SECONDS (21-34) H D 09/01/18 13:03 - Additional Findings Additional findings: * HEENT JANAY * Neck supple * Chest Clear * CVS irregular, no gallop ro rub. * PA soft * Ext 2+edema, no swelling in right groin * NURSING SURGICAL SERVICES DIRECTOR awake oriented x3, moving all ext * Skin normal turgor. Assessment and Plan - Assessment and Plan (Free Text) Assessment: Unstable angina Critical 2 vessels disease DM on oha Thrombocytopenia, chronic, will continue to monitor Afib controlled H/o peptic ulcer, s/p partial gastrectomy. Plan: * ASA, plavix, heparin drip * Likely PCI tomorrow in [place] * Supportive care, dual antiplatelet agent, anticoagulation * HIT w/u, hematology consult has been ordered * Target euglycemia * See orders for detail.
[2018-09-01] MEDS: Heparin25000 units/250ml 1/2NS 25,000 UNITS/250 ML BAG IV PRN (18:29)
--- NOTE | 2018-09-01 19:22 | CARDCATH ---
PROCEDURE DATE: 08/30/2018 PROCEDURES: 1. Left heart catheterization. 2. Coronary angiogram. CLINICAL INDICATIONS: 1. Unstable angina. 2. Coronary artery disease. 3. Atrial fibrillation. 4. Hypertension. 5. Hyperlipidemia. 6. Acute on chronic diastolic heart failure. REFERRING PHYSICIAN: Anai Pressley MD PERFORMING PHYSICIAN: Marco A Ross MD DESCRIPTION OF PROCEDURE: After informed consent, the patient was prepped and draped in the usual sterile fashion. Lidocaine 2% was given on the right groin for local anesthesia. Using micropuncture technique, a 6-Libyan sheath was introduced into the right common femoral artery. A JR4 6-Libyan diagnostic catheter crossed into left ventricle. LV and diastolic pressures measured. Contrast injected and LV angiogram was done. Then the catheter was pulled back across the aortic valve. Gradient across the aortic valve was measured. Then, the same catheter engaged in his right coronary artery. Contrast injected and right coronary angiogram was done. Then, the catheter was exchanged to 6-Libyan JL4 diagnostic catheter. The catheter was engaged into left main coronary artery. Contrast injected and left coronary angiogram was done. The patient tolerated the procedure well. Post procedure, Perclose suture deployed in the right groin with excellent hemostasis. FINDINGS OF THE CATHETERIZATION: 1. Left main coronary artery is patent. 2. LAD has a mid 99% critical stenosis. Distal LAD has a long 95% stenosis. Diagonal branches are patent. 3. Left circumflex and obtuse marginal branches are patent. 4. Right coronary artery is dominant. R2 right coronary artery has 50% stenosis. Mid right coronary artery has a calcific 85% stenosis. Distal right coronary and PDA branches are patent. IMPRESSION: 1. Critical 2-vessel coronary artery disease as described above. 2. Decreased left ventricular function by left ventricular angiography estimated left ventricular ejection fraction is 40% to 45%. Anterolateral wall hypokinesis. EDP is 20. No gradient across the aortic valve. RECOMMENDATIONS: Recommend coronary intervention of both LAD and right coronary artery. Transfer the patient to intensive care unit on IV heparin drip. Marco A Ross MD
[2018-09-02] MEDS: Benzocaine/Menthol (Cepacol) Lozenge MT PRN (05:33)
[2018-09-02] MEDS: Levothyroxine 125 MCG TAB PO SCH (05:40)
[2018-09-02 06:08] LABS: BASO % 0.5 % (0.0-2.0); EOS % 0.2 % (0.0-4.0); LYMPH # 0.8 K/uL (1.0-4.3); LYMPH % 11.5 % (20.0-40.0); MEAN CELL VOLUME 81.1 fL (80.0-94.0); MEAN CORPUSCULAR HEMOGLOBIN 27.2 pg (27.0-31.0); MEAN CORPUSCULAR HGB CONC 33.6 g/dL (33.0-37.0); MEAN PLATELET VOLUME 8.8 fL (7.2-11.7); MONO # 1.8 K/uL (0.0-0.8); MONO % 25.3 % (0.0-10.0); NEUT # 4.5 K/uL (1.8-7.0); NEUT % 62.5 % (50.0-75.0); NRBC % 0.1 % (0.0-2.0); PLATELET COUNT 75 K/uL (130-400); RBC 4.76 Mil/uL (4.40-5.90); RED CELL DISTRIBUTION WIDTH 15.1 % (11.5-14.5); WHITE BLOOD COUNT 7.2 K/uL (4.8-10.8)
[2018-09-02 06:17] LABS: INR 1.1; PROTHROMBIN TIME 12.1 SECONDS (9.7-12.2)
[2018-09-02 06:36] LABS: ALB/GLOB RATIO 1.4 (1.0-2.1); ALBUMIN 3.2 g/dL (3.5-5.0); ALT/SGPT 23 U/L (21-72); AST/SGOT 19 U/L (17-59); BLOOD UREA NITROGEN 20 mg/dL (9-20); CALCIUM 7.4 mg/dl (8.6-10.4); GFR NON-AFRICAN AMERICAN > 60
[2018-09-02] MEDS: (Novolin R) Insulin Human Regular 100 units/ml vial SC SCH ×4 (08:07→22:01)
--- NOTE | 2018-09-02 08:12 | CP.CCUPN ---
CCU Subjective - Physician Review Subjective (Free Text): 09/02/18 11:58 PGY-1 Critical Care Progress Note for Dr. Dalton Patient seen and examined at bedside this AM. No acute overnight events reported. Cardiac cath performed 08/30 showed significant 2 vascular disease of LAD and RCA. Scheduled for PCI this afternoon at [facility]. Patient slightly anxious this am for procedure, but otherwise in no acute distress. Denies any chest pain or palpitations this morning. 12 pt ROS reviewed and otherwise negative. Critical Care Time Spent (in minutes): 35 CCU Objective - Vital Signs / Intake & Output Vital Signs (Last 4 hours): Vital Signs Temp Pulse Resp BP Pulse Ox 09/02/18 07:56 85 21 09/02/18 07:00 84 17 09/02/18 06:51 79 18 111/50 L 09/02/18 06:39 98 F 09/02/18 06:00 84 16 95 09/02/18 05:51 79 17 123/66 97 09/02/18 05:46 142/85 09/02/18 05:39 97.9 F 09/02/18 05:17 73 17 123/55 L 09/02/18 05:10 81 19 119/70 95 09/02/18 04:51 85 11 L 113/68 96 Intake and Output (Last 8hrs): Intake & Output 09/01/18 09/02/18 09/02/18 22:59 06:59 14:59 Intake Total 652.5 560.0 7.5 Output Total 800 700 200 Balance -147.5 -140.0 -192.5 Weight 185 lb 3.013 oz Intake: IV 250 Intake, IV Amount 52.5 60.0 7.5 Right Distal Port Hand 52.5 60.0 7.5 Oral 350 500 0 Output: Urine 800 700 200 Urine, Voided 800 700 200 Other: # Bowel Movements 0 0 0 - Physical Exam Head: Positive for: Atraumatic, Normocephalic Pupils: Positive for: PERRL Extroacular Muscles: Positive for: EOMI Conjunctiva: Positive for: Normal Mouth: Positive for: Moist Mucous Membranes Neck: Positive for: Normal Range of Motion Respiratory/Chest: Positive for: Clear to Auscultation, Good Air Exchange. Negative for: Respiratory Distress, Accessory Muscle Use, Wheezes, Rales, Retracting, Rhonchi Cardiovascular: Positive for: Regular Rate and Rhythm, Normal S1, S2 Abdomen: Positive for: Normal Bowel Sounds. Negative for: Tenderness, Distention, Peritoneal Signs, Rebound, Guarding, Mass/Organomegaly Upper Extremity: Positive for: Normal Inspection, Normal ROM, NORMAL PULSES, Neurovascularly Intact, Capillary Refill < 2s. Negative for: Cyanosis, Edema, Tenderness, Swelling, Erythema Lower Extremity: Positive for: Normal Inspection, NORMAL PULSES, Normal ROM, Neurovascularly Intact, Capillary Refill < 2 s. Negative for: Edema, CALF TENDERNESS, Cyanosis Neurological: Positive for: CN II-XII Intact, Speech Normal Skin: Positive for: Warm, Dry, Normal Color. Negative for: Rashes Psychiatric: Positive for: Alert, Oriented x 3, Normal Insight, Normal Concentration - Medications Active Medications: Active Medications Generic Name Dose Route Start Last Admin Trade Name Freq PRN Reason Stop Dose Admin Alprazolam 0.25 mg 08/30/18 12:25 08/31/18 18:29 Xanax PO 09/06/18 12:26 0.25 mg TID PRN Administration Anxiety Alprazolam 0.25 mg 09/01/18 17:37 09/01/18 22:29 Xanax PO 09/08/18 17:38 0.25 mg ONCE PRN Administration Anxiety Aspirin 81 mg 08/31/18 10:00 09/01/18 10:15 Ecotrin PO 81 mg DAILY SHANELLE Administration Benzocaine/Menthol 1 cinthia 08/30/18 18:41 09/02/18 05:33 Cepacol Sore Throat MT 1 cinthia Q4H PRN Administration Sore Throat Carvedilol 12.5 mg 08/30/18 18:00 09/01/18 18:33 Coreg PO 12.5 mg BID SHANELLE Administration Clopidogrel Bisulfate 75 mg 08/31/18 10:00 09/01/18 10:15 Plavix PO 75 mg DAILY SHANELLE Administration Dextrose 0 ml 08/30/18 12:27 Dextrose 50% Inj IV STAT PRN Hypoglycemia Protocol Protocol Dextrose 0 gm 08/30/18 12:27 Glutose 15 PO ONCE PRN Hypoglycemia Protocol Protocol Glimepiride 1 mg 08/31/18 10:00 09/01/18 10:15 Amaryl PO 1 mg DAILY SHANELLE Administration Glucagon 0 mg 08/30/18 12:28 Glucagen Diagnostic Kit IM STAT PRN Hypoglycemia Protocol Protocol Dextrose 1,000 mls @ 0 mls/hr 08/30/18 12:26 Dextrose 5% In Water 1000 Ml IV .Q0M PRN Hypoglycemia Protocol Protocol Per Protocol Heparin Sodium/Sodium Chloride 25,000 units in 250 mls @ 10.056 mls/hr 08/31/18 14:53 09/01/18 18:29 Heparin 03748 Units/250ml 1/2 Normal Saline IV 9 units/kg/hr .Q24H PRN 7.542 mls/hr ADJUST RATE PER PROTOCOL Administration Protocol 12 UNITS/KG/HR Insulin Human Regular 0 unit 08/30/18 16:30 09/02/18 08:07 Novolin R SC 2 units ACHS SHANELLE Administration Protocol Levothyroxine Sodium 125 mcg 08/31/18 06:30 09/02/18 05:40 Synthroid PO 125 mcg DAILY@0630 SHANELLE Administration Losartan Potassium 100 mg 08/31/18 10:00 09/01/18 10:15 Cozaar PO 100 mg DAILY SHANELLE Administration Nitroglycerin 0.4 mg 08/31/18 09:13 Nitrostat Sl Tab SL Q5M PRN Pain, Mild (1-3) Pantoprazole Sodium 40 mg 08/31/18 10:00 09/01/18 10:17 Protonix Ec Tab PO 40 mg DAILY SHANELLE Administration Rosuvastatin Calcium 10 mg 08/30/18 22:00 09/01/18 22:29 Crestor PO 10 mg HS SHANELLE Administration Tamsulosin HCl 0.4 mg 08/31/18 10:00 09/01/18 10:17 Flomax PO Not Given DAILY SHANELLE - Patient Studies Lab Studies: Lab Studies 09/02/18 09/02/18 09/02/18 Range/Units 06:04 06:04 06:04 WBC 7.2 (4.8-10.8) K/uL RBC 4.76 (4.40-5.90) Mil/uL Hgb 13.0 (12.0-18.0) g/dL Hct 38.6 (35.0-51.0) % MCV 81.1 (80.0-94.0) fL MCH 27.2 (27.0-31.0) pg MCHC 33.6 (33.0-37.0) g/dL RDW 15.1 H (11.5-14.5) % Plt Count 75 L (130-400) K/uL Manual Plt Count (130-400) K/uL MPV 8.8 (7.2-11.7) fL Neut % (Auto) 62.5 (50.0-75.0) % Lymph % (Auto) 11.5 L (20.0-40.0) % [place] % (Auto) 25.3 H (0.0-10.0) % Eos % (Auto) 0.2 (0.0-4.0) % Baso % (Auto) 0.5 (0.0-2.0) % Neut # (Auto) 4.5 (1.8-7.0) K/uL Lymph # (Auto) 0.8 L (1.0-4.3) K/uL [place] # (Auto) 1.8 H (0.0-0.8) K/uL Eos # (Auto) 0.0 (0.0-0.7) K/uL Baso # (Auto) 0.0 (0.0-0.2) K/uL Neutrophils % (Manual) (50-75) % Lymphocytes % (Manual) (20-40) % Monocytes % (Manual) (0-10) % Platelet Estimate (NORMAL) Anisocytosis (manual) PT 12.1 (9.7-12.2) SECONDS INR 1.1 APTT 62 H D (21-34) SECONDS Sodium 138 (132-148) mmol/L Potassium 3.8 (3.6-5.2) mmol/L Chloride 106 (98-107) mmol/L Carbon Dioxide 25 (22-30) mmol/L Anion Gap 10 (10-20) BUN 20 (9-20) mg/dL Creatinine 0.5 L (0.8-1.5) mg/dL Est GFR ( Amer) > 60 Est GFR (Non-Af Amer) > 60 POC Glucose (mg/dL) (65-110) mg/dL Random Glucose 155 H (75-110) mg/dL Calcium 7.4 L (8.6-10.4) mg/dl Phosphorus 2.0 L (2.5-4.5) mg/dL Magnesium 2.1 (1.6-2.3) mg/dL Total Bilirubin 0.7 (0.2-1.3) mg/dL AST 19 (17-59) U/L ALT 23 (21-72) U/L Alkaline Phosphatase 79 (38-126) U/L Total Protein 5.6 L (6.3-8.3) g/dL Albumin 3.2 L (3.5-5.0) g/dL Globulin 2.3 (2.2-3.9) gm/dL Albumin/Globulin Ratio 1.4 (1.0-2.1) 09/01/18 09/01/18 09/01/18 Range/Units 21:03 20:09 16:55 WBC (4.8-10.8) K/uL RBC (4.40-5.90) Mil/uL Hgb (12.0-18.0) g/dL Hct (35.0-51.0) % MCV (80.0-94.0) fL MCH (27.0-31.0) pg MCHC (33.0-37.0) g/dL RDW (11.5-14.5) % Plt Count (130-400) K/uL Manual Plt Count 91 L (130-400) K/uL MPV (7.2-11.7) fL Neut % (Auto) (50.0-75.0) % Lymph % (Auto) (20.0-40.0) % [place] % (Auto) (0.0-10.0) % Eos % (Auto) (0.0-4.0) % Baso % (Auto) (0.0-2.0) % Neut # (Auto) (1.8-7.0) K/uL Lymph # (Auto) (1.0-4.3) K/uL [place] # (Auto) (0.0-0.8) K/uL Eos # (Auto) (0.0-0.7) K/uL Baso # (Auto) (0.0-0.2) K/uL Neutrophils % (Manual) (50-75) % Lymphocytes % (Manual) (20-40) % Monocytes % (Manual) (0-10) % Platelet Estimate (NORMAL) Anisocytosis (manual) PT (9.7-12.2) SECONDS INR APTT 56 H (21-34) SECONDS Sodium (132-148) mmol/L Potassium (3.6-5.2) mmol/L Chloride (98-107) mmol/L Carbon Dioxide (22-30) mmol/L Anion Gap (10-20) BUN (9-20) mg/dL Creatinine (0.8-1.5) mg/dL Est GFR ( Amer) Est GFR (Non-Af Amer) POC Glucose (mg/dL) 155 H (65-110) mg/dL Random Glucose (75-110) mg/dL Calcium (8.6-10.4) mg/dl Phosphorus (2.5-4.5) mg/dL Magnesium (1.6-2.3) mg/dL Total Bilirubin (0.2-1.3) mg/dL AST (17-59) U/L ALT (21-72) U/L Alkaline Phosphatase (38-126) U/L Total Protein (6.3-8.3) g/dL Albumin (3.5-5.0) g/dL Globulin (2.2-3.9) gm/dL Albumin/Globulin Ratio (1.0-2.1) 09/01/18 09/01/18 09/01/18 Range/Units 16:02 13:03 13:03 WBC 8.9 (4.8-10.8) K/uL RBC 4.87 (4.40-5.90) Mil/uL Hgb 13.4 (12.0-18.0) g/dL Hct 40.0 (35.0-51.0) % MCV 82.2 (80.0-94.0) fL MCH 27.6 (27.0-31.0) pg MCHC 33.6 (33.0-37.0) g/dL RDW 15.3 H (11.5-14.5) % Plt Count 82 L (130-400) K/uL Manual Plt Count (130-400) K/uL MPV 9.4 (7.2-11.7) fL Neut % (Auto) 73.2 (50.0-75.0) % Lymph % (Auto) 6.8 L (20.0-40.0) % [place] % (Auto) 19.5 H (0.0-10.0) % Eos % (Auto) 0.1 (0.0-4.0) % Baso % (Auto) 0.4 (0.0-2.0) % Neut # (Auto) 6.5 (1.8-7.0) K/uL Lymph # (Auto) 0.6 L (1.0-4.3) K/uL [place] # (Auto) 1.7 H (0.0-0.8) K/uL Eos # (Auto) 0.0 (0.0-0.7) K/uL Baso # (Auto) 0.0 (0.0-0.2) K/uL Neutrophils % (Manual) 75 (50-75) % Lymphocytes % (Manual) 6 L (20-40) % Monocytes % (Manual) 19 H (0-10) % Platelet Estimate Decreased L (NORMAL) Anisocytosis (manual) Slight PT (9.7-12.2) SECONDS INR APTT 58 H D (21-34) SECONDS Sodium (132-148) mmol/L Potassium (3.6-5.2) mmol/L Chloride (98-107) mmol/L Carbon Dioxide (22-30) mmol/L Anion Gap (10-20) BUN (9-20) mg/dL Creatinine (0.8-1.5) mg/dL Est GFR ( Amer) Est GFR (Non-Af Amer) POC Glucose (mg/dL) 201 H (65-110) mg/dL Random Glucose (75-110) mg/dL Calcium (8.6-10.4) mg/dl Phosphorus (2.5-4.5) mg/dL Magnesium (1.6-2.3) mg/dL Total Bilirubin (0.2-1.3) mg/dL AST (17-59) U/L ALT (21-72) U/L Alkaline Phosphatase (38-126) U/L Total Protein (6.3-8.3) g/dL Albumin (3.5-5.0) g/dL Globulin (2.2-3.9) gm/dL Albumin/Globulin Ratio (1.0-2.1) 09/01/18 09/01/18 Range/Units 11:57 08:09 WBC (4.8-10.8) K/uL RBC (4.40-5.90) Mil/uL Hgb (12.0-18.0) g/dL Hct (35.0-51.0) % MCV (80.0-94.0) fL MCH (27.0-31.0) pg MCHC (33.0-37.0) g/dL RDW (11.5-14.5) % Plt Count (130-400) K/uL Manual Plt Count (130-400) K/uL MPV (7.2-11.7) fL Neut % (Auto) (50.0-75.0) % Lymph % (Auto) (20.0-40.0) % [place] % (Auto) (0.0-10.0) % Eos % (Auto) (0.0-4.0) % Baso % (Auto) (0.0-2.0) % Neut # (Auto) (1.8-7.0) K/uL Lymph # (Auto) (1.0-4.3) K/uL [place] # (Auto) (0.0-0.8) K/uL Eos # (Auto) (0.0-0.7) K/uL Baso # (Auto) (0.0-0.2) K/uL Neutrophils % (Manual) (50-75) % Lymphocytes % (Manual) (20-40) % Monocytes % (Manual) (0-10) % Platelet Estimate (NORMAL) Anisocytosis (manual) PT (9.7-12.2) SECONDS INR APTT (21-34) SECONDS Sodium (132-148) mmol/L Potassium (3.6-5.2) mmol/L Chloride (98-107) mmol/L Carbon Dioxide (22-30) mmol/L Anion Gap (10-20) BUN (9-20) mg/dL Creatinine (0.8-1.5) mg/dL Est GFR ( Amer) Est GFR (Non-Af Amer) POC Glucose (mg/dL) 237 H 161 H (65-110) mg/dL Random Glucose (75-110) mg/dL Calcium (8.6-10.4) mg/dl Phosphorus (2.5-4.5) mg/dL Magnesium (1.6-2.3) mg/dL Total Bilirubin (0.2-1.3) mg/dL AST (17-59) U/L ALT (21-72) U/L Alkaline Phosphatase (38-126) U/L Total Protein (6.3-8.3) g/dL Albumin (3.5-5.0) g/dL Globulin (2.2-3.9) gm/dL Albumin/Globulin Ratio (1.0-2.1) Laboratory Results - last 24 hr 09/01/18 09/01/18 09/01/18 08:09 11:57 13:03 WBC RBC Hgb Hct MCV MCH MCHC RDW Plt Count Manual Plt Count MPV Neut % (Auto) Lymph % (Auto) [place] % (Auto) Eos % (Auto) Baso % (Auto) Neut # (Auto) Lymph # (Auto) [place] # (Auto) Eos # (Auto) Baso # (Auto) Neutrophils % (Manual) Lymphocytes % (Manual) Monocytes % (Manual) Platelet Estimate Anisocytosis (manual) PT INR APTT 58 H D Sodium Potassium Chloride Carbon Dioxide Anion Gap BUN Creatinine Est GFR ( Amer) Est GFR (Non-Af Amer) POC Glucose (mg/dL) 161 H 237 H Random Glucose Calcium Phosphorus Magnesium Total Bilirubin AST ALT Alkaline Phosphatase Total Protein Albumin Globulin Albumin/Globulin Ratio 09/01/18 09/01/18 09/01/18 13:03 16:02 16:55 WBC 8.9 RBC 4.87 Hgb 13.4 Hct 40.0 MCV 82.2 MCH 27.6 MCHC 33.6 RDW 15.3 H Plt Count 82 L Manual Plt Count 91 L MPV 9.4 Neut % (Auto) 73.2 Lymph % (Auto) 6.8 L [place] % (Auto) 19.5 H Eos % (Auto) 0.1 Baso % (Auto) 0.4 Neut # (Auto) 6.5 Lymph # (Auto) 0.6 L [place] # (Auto) 1.7 H Eos # (Auto) 0.0 Baso # (Auto) 0.0 Neutrophils % (Manual) 75 Lymphocytes % (Manual) 6 L Monocytes % (Manual) 19 H Platelet Estimate Decreased L Anisocytosis (manual) Slight PT INR APTT Sodium Potassium Chloride Carbon Dioxide Anion Gap BUN Creatinine Est GFR ( Amer) Est GFR (Non-Af Amer) POC Glucose (mg/dL) 201 H Random Glucose Calcium Phosphorus Magnesium Total Bilirubin AST ALT Alkaline Phosphatase Total Protein Albumin Globulin Albumin/Globulin Ratio 09/01/18 09/01/18 09/02/18 20:09 21:03 06:04 WBC 7.2 RBC 4.76 Hgb 13.0 Hct 38.6 MCV 81.1 MCH 27.2 MCHC 33.6 RDW 15.1 H Plt Count 75 L Manual Plt Count MPV 8.8 Neut % (Auto) 62.5 Lymph % (Auto) 11.5 L [place] % (Auto) 25.3 H Eos % (Auto) 0.2 Baso % (Auto) 0.5 Neut # (Auto) 4.5 Lymph # (Auto) 0.8 L [place] # (Auto) 1.8 H Eos # (Auto) 0.0 Baso # (Auto) 0.0 Neutrophils % (Manual) Lymphocytes % (Manual) Monocytes % (Manual) Platelet Estimate Anisocytosis (manual) PT INR APTT 56 H Sodium Potassium Chloride Carbon Dioxide Anion Gap BUN Creatinine Est GFR ( Amer) Est GFR (Non-Af Amer) POC Glucose (mg/dL) 155 H Random Glucose Calcium Phosphorus Magnesium Total Bilirubin AST ALT Alkaline Phosphatase Total Protein Albumin Globulin Albumin/Globulin Ratio 09/02/18 09/02/18 06:04 06:04 WBC RBC Hgb Hct MCV MCH MCHC RDW Plt Count Manual Plt Count MPV Neut % (Auto) Lymph % (Auto) [place] % (Auto) Eos % (Auto) Baso % (Auto) Neut # (Auto) Lymph # (Auto) [place] # (Auto) Eos # (Auto) Baso # (Auto) Neutrophils % (Manual) Lymphocytes % (Manual) Monocytes % (Manual) Platelet Estimate Anisocytosis (manual) PT 12.1 INR 1.1 APTT 62 H D Sodium 138 Potassium 3.8 Chloride 106 Carbon Dioxide 25 Anion Gap 10 BUN 20 Creatinine 0.5 L Est GFR ( Amer) > 60 Est GFR (Non-Af Amer) > 60 POC Glucose (mg/dL) Random Glucose 155 H Calcium 7.4 L Phosphorus 2.0 L Magnesium 2.1 Total Bilirubin 0.7 AST 19 ALT 23 Alkaline Phosphatase 79 Total Protein 5.6 L Albumin 3.2 L Globulin 2.3 Albumin/Globulin Ratio 1.4 EKG/Cardiology Studies: Cardiology / EKG Studies 09/02/18 05:26 ELECTROCARDIOGRAM Stat Comment: Mode Of Transportation: PORTABLE Reason For Exam: left sided chest discomfort intensity 4/10 Fingerstick Blood Sugar Results: 203 Review of Systems - Review of Systems All systems: reviewed and no additional remarkable complaints except Review of Systems: as per HPI Critical Care Progress Note - Nutrition Nutrition: Nutrition Category Date Time Status Heart Healthy Diet [DIET] Diets 09/01/18 Lunch Active NPO Diet [DIET] Diets 09/02/18 Lunch Active Assessment/Plan - Assessment and Plan (Free Text) Assessment: 78 yo M with pmhx of unstable angina, Afib, HTN, systolic CHF with EF 40%, DM, hx tobacco use admitted for unstable angina. S/P cardiac cath with Dr. 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 On ASA, plavix, heparin drip. Scheduled for PCI this afternoon at [facility]. Plan: CV Unstable angina -pt s/p cardiac cath (08/30): LVEF 40%, 99% LAD occlusion, 80% RCA occlusion -on ASA, plavix, heparin ggt -PCI scheduled later this afternoon at [facility] HTN -cozaar, coreg HLD -crestor Hx of Afib -on heparin, currently rate controlled with coreg Pulm -stable, patient in no acute distress Heme Hx of Thrombocytopenia, etiology unclear -PLT 75 -Hematology consulted (Dr. Mccall) -Per Dr. 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 Medically stable for PCI later today -continue to monitor daily PLT -f/u HIT panel Endo DM type II -ISS -accuchecks achs Hypothyroidism -synthroid PPx, Diet, Disposition -heparin drip -protonix -NPO -dispo: PCI at [facility] this afternoon Case discussed with Dr. Sha Jean-Baptiste DO, PGY-1
[2018-09-02 08:31] LABS: BASOPHIL 1 % (0-2); LYMPHOCYTE 14 % (20-40); MONOCYTE 25 % (0-10); NEUTROPHIL 60 % (50-75); PLATELET ESTIMATE DECREASED (NORMAL); TOTAL CELLS COUNTED 100
--- NOTE | 2018-09-02 08:32 | CP.PCM.PN ---
Subjective - Date & Time of Evaluation Date of Evaluation: 09/02/18 Time of Evaluation: 08:10 - Subjective Subjective: This is a 78 year old male who was admitted on 08/30 with chest pain and a history of abnormal, atrial fibrillation, HTN and CHF. He has risk factors such as diabetes as well as a previous smoking. He also had a cardiac catherization on 08/30 which showed LAD and RCA disease and has been on Plavix, ASA, and heparin ggt. He was intially on a nitro ggt this is now off. He is pending going to [facility] for potential PCI later today This morning the patient was not having chest pain when I saw him however he notes very early in the morning was having chest pain. Objective - Vital Signs/Intake and Output Vital Signs (last 24 hours): Temp Pulse Resp BP Pulse Ox 98 F 85 21 111/50 L 95 09/02/18 06:39 09/02/18 07:56 09/02/18 07:56 09/02/18 06:51 09/02/18 06:00 Intake and Output: 09/02/18 09/02/18 06:59 18:59 Intake Total 940.0 7.5 Output Total 1000 200 Balance -60.0 -192.5 - Medications Medications: Current Medications Alprazolam (Xanax) 0.25 mg PO TID PRN PRN Reason: Anxiety Stop: 09/06/18 12:26 Last Admin: 08/31/18 18:29 Dose: 0.25 mg Alprazolam (Xanax) 0.25 mg PO ONCE PRN PRN Reason: Anxiety Stop: 09/08/18 17:38 Last Admin: 09/01/18 22:29 Dose: 0.25 mg Aspirin (Ecotrin) 81 mg PO DAILY REPLACED BY [facility] Last Admin: 09/01/18 10:15 Dose: 81 mg Benzocaine/Menthol (Cepacol Sore Throat) 1 cinthia MT Q4H PRN PRN Reason: Sore Throat Last Admin: 09/02/18 05:33 Dose: 1 cinthia Carvedilol (Coreg) 12.5 mg PO BID REPLACED BY [facility] Last Admin: 09/01/18 18:33 Dose: 12.5 mg Clopidogrel Bisulfate (Plavix) 75 mg PO DAILY REPLACED BY [facility] Last Admin: 09/01/18 10:15 Dose: 75 mg Dextrose (Dextrose 50% Inj) 0 ml IV STAT PRN; Protocol PRN Reason: Hypoglycemia Protocol Dextrose (Glutose 15) 0 gm PO ONCE PRN; Protocol PRN Reason: Hypoglycemia Protocol Glimepiride (Amaryl) 1 mg PO DAILY REPLACED BY [facility] Last Admin: 09/01/18 10:15 Dose: 1 mg Glucagon (Glucagen Diagnostic Kit) 0 mg IM STAT PRN; Protocol PRN Reason: Hypoglycemia Protocol Dextrose (Dextrose 5% In Water 1000 Ml) 1,000 mls @ 0 mls/hr IV .Q0M PRN; Protocol PRN Reason: Hypoglycemia Protocol Heparin Sodium/Sodium Chloride (Heparin 77986 Units/250ml 1/2 Normal Saline) 25,000 units in 250 mls @ 10.056 mls/hr IV .Q24H PRN; Protocol PRN Reason: ADJUST RATE PER PROTOCOL Last Admin: 09/01/18 18:29 Dose: 9 units/kg/hr, 7.542 mls/hr Insulin Human Regular (Novolin R) 0 unit SC [facility] REPLACED BY [facility]; Protocol Last Admin: 09/02/18 08:07 Dose: 2 units Levothyroxine Sodium (Synthroid) 125 mcg PO DAILY@0630 REPLACED BY [facility] Last Admin: 09/02/18 05:40 Dose: 125 mcg Losartan Potassium (Cozaar) 100 mg PO DAILY REPLACED BY [facility] Last Admin: 09/01/18 10:15 Dose: 100 mg Nitroglycerin (Nitrostat Sl Tab) 0.4 mg SL Q5M PRN PRN Reason: Pain, Mild (1-3) Pantoprazole Sodium (Protonix Ec Tab) 40 mg PO DAILY REPLACED BY [facility] Last Admin: 09/01/18 10:17 Dose: 40 mg Rosuvastatin Calcium (Crestor) 10 mg PO HS REPLACED BY [facility] Last Admin: 09/01/18 22:29 Dose: 10 mg Tamsulosin HCl (Flomax) 0.4 mg PO DAILY REPLACED BY [facility] Last Admin: 09/01/18 10:17 Dose: Not Given - Labs Labs: 09/02/18 06:04 09/02/18 06:04 PT 12.1 SECONDS (9.7-12.2) 09/02/18 06:04 INR 1.1 09/02/18 06:04 APTT 62 SECONDS (21-34) H D 09/02/18 06:04 - Constitutional Appears: No Acute Distress - Head Exam Head Exam: NORMAL INSPECTION, NORMOCEPHALIC - Eye Exam Eye Exam: EOMI, Normal appearance - ENT Exam ENT Exam: Mucous Membranes Moist - Respiratory Exam Respiratory Exam: Decreased Breath Sounds - Cardiovascular Exam Cardiovascular Exam: Irregular Rhythm - GI/Abdominal Exam GI & Abdominal Exam: Soft, Normal Bowel Sounds - Neurological Exam Neurological Exam: Alert, Awake, Oriented x3 Neuro motor strength exam: Left Upper Extremity: 5, Right Upper Extremity: 5 - Skin Skin Exam: Normal Color, Warm Assessment and Plan - Assessment and Plan (Free Text) Assessment: 1. Unstable Angina and S/P catherization LVEF 40%, 99% LAD, 80% RCA Currently remains on Plavix, ASA, and Heparin ggt. The platelets are low and hematology was consulted. This morning are 75. For potential PCI later today at [facility] He has low platelets,History of low platelets.Patient not aware of any platelet issues Discussed with Dr Mccall. 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 He agrees with continue heparin,plavix and asprin and monitor platelets per Dr Mccall patient should be ok to go for PCI .HIT panel ordered Continue Asprin, Plavix ,Coreg 12.5 bid ,Crestor and Cozaar 2. Thrombocytopenia This morning is 75. Hematology consult 3. Hypertension Cozaar 100mg PO QD,coreg 4. Atrial fibrillation On Heparin, currently rate is controlled with coreg HR has been in the 70s to 80s on the library monitor 5. DM-2 Accuchecks ACHS with insulin coverage 6. Hypothyroidism Synthroid 125mg PO QD 7. Hyperlipidemia Crestor 10mg PO HS Prophylaxis: Protonix 40mg and on heparin
[2018-09-02] MEDS: Pantoprazole 40 mg EC Tab PO SCH (09:23)
[2018-09-02 09:28] LABS: PLATELET COUNT MANUAL 79 K/uL (130-400)
[2018-09-02] MEDS ORDERED: Potassium & Sodium Phosphate PO ONE (10:00)
--- NOTE | 2018-09-02 11:43 | CARD ---
APPROVED REPORT Date of service: 09/02/2018 EKG Measurement Heart [id number] <Conclusion> Atrial fibrillation Nonspecific T wave abnormality Abnormal ECG
--- NOTE | 2018-09-02 14:57 | CP.PCM.PN ---
Subjective - Date & Time of Evaluation Date of Evaluation: 09/02/18 Time of Evaluation: 14:54 - Subjective Subjective: Patient s/p LAD 2 stents (BRIAN) Ambulate after 8pm tonight D/C Heparin IV Lovenox 40sc daily for DVT prophylaxis Monitor platelet count IV hydration Plavix 75, b blockers, ARBs and Statins for life For A Fib Start Eliquis 2.5 mg po bid from tomorrow if no bleeding and cleared by hemotology Once starting eliquis stop out patient Coumadin and in patient Lovenox ASA 81 for 1 month and then D/C (Higher risk of bleeding if continued longer with Plavix plus Eliquis) Objective - Vital Signs/Intake and Output Vital Signs (last 24 hours): Temp Pulse Resp BP Pulse Ox 97.5 F L 88 15 102/68 98 09/02/18 11:45 09/02/18 11:45 09/02/18 11:45 09/02/18 11:45 09/02/18 11:45 Intake and Output: 09/02/18 09/02/18 06:59 18:59 Intake Total 940.0 705.0 Output Total 1000 500 Balance -60.0 205.0 - Medications Medications: Current Medications Alprazolam (Xanax) 0.25 mg PO TID PRN PRN Reason: Anxiety Stop: 09/06/18 12:26 Last Admin: 09/02/18 10:43 Dose: 0.25 mg Alprazolam (Xanax) 0.25 mg PO ONCE PRN PRN Reason: Anxiety Stop: 09/08/18 17:38 Last Admin: 09/01/18 22:29 Dose: 0.25 mg Aspirin (Ecotrin) 81 mg PO DAILY [facility] Last Admin: 09/02/18 09:23 Dose: 81 mg Benzocaine/Menthol (Cepacol Sore Throat) 1 cinthia MT Q4H PRN PRN Reason: Sore Throat Last Admin: 09/02/18 05:33 Dose: 1 cinthia Carvedilol (Coreg) 12.5 mg PO BID [facility] Last Admin: 09/02/18 09:23 Dose: 12.5 mg Clopidogrel Bisulfate (Plavix) 75 mg PO DAILY [facility] Last Admin: 09/02/18 09:24 Dose: 75 mg Dextrose (Dextrose 50% Inj) 0 ml IV STAT PRN; Protocol PRN Reason: Hypoglycemia Protocol Dextrose (Glutose 15) 0 gm PO ONCE PRN; Protocol PRN Reason: Hypoglycemia Protocol Glimepiride (Amaryl) 1 mg PO DAILY [facility] Last Admin: 09/01/18 10:15 Dose: 1 mg Glucagon (Glucagen Diagnostic Kit) 0 mg IM STAT PRN; Protocol PRN Reason: Hypoglycemia Protocol Dextrose (Dextrose 5% In Water 1000 Ml) 1,000 mls @ 0 mls/hr IV .Q0M PRN; Protocol PRN Reason: Hypoglycemia Protocol Insulin Human Regular (Novolin R) 0 unit SC ACHS [facility]; Protocol Last Admin: 09/02/18 11:23 Dose: Not Given Levothyroxine Sodium (Synthroid) 125 mcg PO DAILY@0630 [facility] Last Admin: 09/02/18 05:40 Dose: 125 mcg Losartan Potassium (Cozaar) 100 mg PO DAILY [facility] Last Admin: 09/02/18 09:24 Dose: 100 mg Nitroglycerin (Nitrostat Sl Tab) 0.4 mg SL Q5M PRN PRN Reason: Pain, Mild (1-3) Pantoprazole Sodium (Protonix Ec Tab) 40 mg PO DAILY [facility] Last Admin: 09/02/18 09:23 Dose: 40 mg Rosuvastatin Calcium (Crestor) 10 mg PO HS [facility] Last Admin: 09/01/18 22:29 Dose: 10 mg Tamsulosin HCl (Flomax) 0.4 mg PO DAILY [facility] Last Admin: 09/02/18 10:32 Dose: Not Given - Labs Labs: 09/02/18 06:04 09/02/18 06:04 PT 12.1 SECONDS (9.7-12.2) 09/02/18 06:04 INR 1.1 09/02/18 06:04 APTT 62 SECONDS (21-34) H D 09/02/18 06:04
--- NOTE | 2018-09-02 19:42 | CARD ---
APPROVED REPORT Date of service: 08/30/2018 EKG Measurement Heart [id number] <Conclusion> Atrial fibrillation Nonspecific ST and T wave abnormality Abnormal ECG
--- NOTE | 2018-09-02 19:47 | CARD ---
APPROVED REPORT Date of service: 08/30/2018 EKG Measurement Heart [id number] <Conclusion> Atrial fibrillation Nonspecific ST and T wave abnormality Abnormal ECG
--- NOTE | 2018-09-02 21:23 | CARD ---
APPROVED REPORT Date of service: 08/31/2018 EKG Measurement Heart [id number] <Conclusion> Atrial fibrillation ST & T wave abnormality, consider anterior ischemia Prolonged QT Abnormal ECG
--- NOTE | 2018-09-02 22:49 | CP.PCM.CON ---
History of Present Illness - History of Present Illness History of Present Illness: 78 year old male with a history of former tobacco abuse, hypothyroid, afib, HTN, DM, CHF, admitted with chest pain, found to have CAD s/p PCI and placement of BRIAN, with thrombocytopenia. The patient is unaware of having blood problems in the past. He denies abnormal bleeding and bruising. Review of his blood work shows thrombocytopenia since 2015. His current platelet ruben is 75,000. Past medical history: Former tobacco abuse, hypothyroid, afib, HTN, DM, CHF Past surgical history: Appendectomy Family history: Denies hematologic and oncologic problems Social history: Former 1ppd x 40 years, denies alcohol, and illicit drug use. Allergies: Nuclear dye Review of systems: All remaining review of systems including HEENT, cardiovascular, respiratory, gastrointestinal, genitourinary, musculoskeletal, dermatologic, neurologic, and psychiatric are negative unless mentioned in the HPI. Past Patient History - Infectious Disease Hx of Infectious Diseases: None - Past Medical History & Family History Past Medical History?: Yes - Past Social History Smoking Status: Former Smoker - CARDIAC Hx Hypercholesterolemia: Yes Hx Hypertension: Yes - PULMONARY Hx Respiratory Disorders: No - NEUROLOGICAL Hx Neurological Disorder: No - HEENT Hx HEENT Problems: No Other/Comment: WEARS EYEGLASSES FOR NEAR AND FAR SIGHT - RENAL Hx Chronic Kidney Disease: No - ENDOCRINE/METABOLIC Hx Diabetes Mellitus Type 2: Yes Hx Hypothyroidism: Yes - HEMATOLOGICAL/ONCOLOGICAL Hx Blood Disorders: No - INTEGUMENTARY Hx Dermatological Problems: No Hx Melanoma: Yes (FOOT) - MUSCULOSKELETAL/RHEUMATOLOGICAL Hx Falls: No Other/Comment: SUPPOSED TO USE CANE, CANNOT WALK MORE THAN 2 BLOCKS DUE TO SOB - GASTROINTESTINAL Hx Gastrointestinal Disorders: Yes Hx Ulcer: Yes - GENITOURINARY/GYNECOLOGICAL Hx Genitourinary Disorders: Yes Hx Prostate Problems: Yes (BPH) - PSYCHIATRIC Hx Psychophysiologic Disorder: No Hx Substance Use: No - SURGICAL HISTORY Hx Surgeries: Yes Hx Appendectomy: Yes Hx Orthopedic Surgery: Yes Other/Comment: multiple hx of surgery. abdominal x 2. foot surgery due to CA, melanoma. appendectomy - ANESTHESIA Hx Anesthesia: Yes Hx Anesthesia Reactions: No Hx Malignant Hyperthermia: No Meds Allergies/Adverse Reactions: Allergies Allergy/AdvReac Type Severity Reaction Status Date / Time nuclear dye allergy Allergy Uncoded 08/30/18 10:08 - Medications Medications: Current Medications Alprazolam (Xanax) 0.25 mg PO TID PRN PRN Reason: Anxiety Stop: 09/06/18 12:26 Last Admin: 09/02/18 10:43 Dose: 0.25 mg Alprazolam (Xanax) 0.25 mg PO ONCE PRN PRN Reason: Anxiety Stop: 09/08/18 17:38 Last Admin: 09/01/18 22:29 Dose: 0.25 mg Aspirin (Ecotrin) 81 mg PO DAILY [facility] Last Admin: 09/02/18 09:23 Dose: 81 mg Benzocaine/Menthol (Cepacol Sore Throat) 1 cinthia MT Q4H PRN PRN Reason: Sore Throat Last Admin: 09/02/18 05:33 Dose: 1 cinthia Carvedilol (Coreg) 12.5 mg PO BID [facility] Last Admin: 09/02/18 21:54 Dose: 12.5 mg Clopidogrel Bisulfate (Plavix) 75 mg PO DAILY [facility] Last Admin: 09/02/18 09:24 Dose: 75 mg Dextrose (Dextrose 50% Inj) 0 ml IV STAT PRN; Protocol PRN Reason: Hypoglycemia Protocol Dextrose (Glutose 15) 0 gm PO ONCE PRN; Protocol PRN Reason: Hypoglycemia Protocol Enoxaparin Sodium (Lovenox) 40 mg SC DAILY [facility] Glimepiride (Amaryl) 1 mg PO DAILY [facility] Last Admin: 09/01/18 10:15 Dose: 1 mg Glucagon (Glucagen Diagnostic Kit) 0 mg IM STAT PRN; Protocol PRN Reason: Hypoglycemia Protocol Dextrose (Dextrose 5% In Water 1000 Ml) 1,000 mls @ 0 mls/hr IV .Q0M PRN; Protocol PRN Reason: Hypoglycemia Protocol Insulin Human Regular (Novolin R) 0 unit SC [facility]; Protocol Last Admin: 09/02/18 22:01 Dose: Not Given Levothyroxine Sodium (Synthroid) 125 mcg PO DAILY@0630 [facility] Last Admin: 09/02/18 05:40 Dose: 125 mcg Losartan Potassium (Cozaar) 100 mg PO DAILY [facility] Last Admin: 09/02/18 09:24 Dose: 100 mg Nitroglycerin (Nitrostat Sl Tab) 0.4 mg SL Q5M PRN PRN Reason: Pain, Mild (1-3) Pantoprazole Sodium (Protonix Ec Tab) 40 mg PO DAILY [facility] Last Admin: 09/02/18 09:23 Dose: 40 mg Rosuvastatin Calcium (Crestor) 10 mg PO HS [facility] Last Admin: 09/02/18 21:54 Dose: 10 mg Tamsulosin HCl (Flomax) 0.4 mg PO DAILY [facility] Last Admin: 09/02/18 10:32 Dose: Not Given Physical Exam - Head Exam Head Exam: ATRAUMATIC - Eye Exam Eye Exam: Normal appearance - ENT Exam ENT Exam: Mucous Membranes Dry - Respiratory Exam Respiratory Exam: NORMAL BREATHING PATTERN - Cardiovascular Exam Cardiovascular Exam: +S1, +S2 - GI/Abdominal Exam GI & Abdominal Exam: Normal Bowel Sounds - Neurological Exam Neurological exam: Oriented x3 - Psychiatric Exam Psychiatric exam: Normal Affect, Normal Mood - Skin Skin Exam: Warm Results - Vital Signs Recent Vital Signs: Last Vital Signs Temp 97.7 F 09/02/18 20:00 Pulse 97 H 09/02/18 22:00 Resp 22 09/02/18 22:00 BP 143/72 09/02/18 21:54 Pulse Ox 95 09/02/18 22:00 - Labs Result Diagrams: 09/02/18 06:04 09/02/18 06:04 Labs: Laboratory Results - last 24 hr 09/01/18 09/01/18 09/01/18 08:09 11:57 16:02 WBC RBC Hgb Hct MCV MCH MCHC RDW Plt Count Manual Plt Count MPV Neut % (Auto) Lymph % (Auto) Crenshaw % (Auto) Eos % (Auto) Baso % (Auto) Neut # (Auto) Lymph # (Auto) Crenshaw # (Auto) Eos # (Auto) Baso # (Auto) Neutrophils % (Manual) Lymphocytes % (Manual) Monocytes % (Manual) Basophils % (Manual) Platelet Estimate PT INR APTT Sodium Potassium Chloride Carbon Dioxide Anion Gap BUN Creatinine Est GFR ( Amer) Est GFR (Non-Af Amer) POC Glucose (mg/dL) 161 H 237 H 201 H Random Glucose Calcium Phosphorus Magnesium Total Bilirubin AST ALT Alkaline Phosphatase Total Protein Albumin Globulin Albumin/Globulin Ratio 09/01/18 09/02/18 09/02/18 21:03 06:04 06:04 WBC 7.2 RBC 4.76 Hgb 13.0 Hct 38.6 MCV 81.1 MCH 27.2 MCHC 33.6 RDW 15.1 H Plt Count 75 L Manual Plt Count 79 L MPV 8.8 Neut % (Auto) 62.5 Lymph % (Auto) 11.5 L Crenshaw % (Auto) 25.3 H Eos % (Auto) 0.2 Baso % (Auto) 0.5 Neut # (Auto) 4.5 Lymph # (Auto) 0.8 L Crenshaw # (Auto) 1.8 H Eos # (Auto) 0.0 Baso # (Auto) 0.0 Neutrophils % (Manual) 60 Lymphocytes % (Manual) 14 L Monocytes % (Manual) 25 H Basophils % (Manual) 1 Platelet Estimate Decreased L PT INR APTT Sodium 138 Potassium 3.8 Chloride 106 Carbon Dioxide 25 Anion Gap 10 BUN 20 Creatinine 0.5 L Est GFR ( Amer) > 60 Est GFR (Non-Af Amer) > 60 POC Glucose (mg/dL) 155 H Random Glucose 155 H Calcium 7.4 L Phosphorus 2.0 L Magnesium 2.1 Total Bilirubin 0.7 AST 19 ALT 23 Alkaline Phosphatase 79 Total Protein 5.6 L Albumin 3.2 L Globulin 2.3 Albumin/Globulin Ratio 1.4 09/02/18 06:04 WBC RBC Hgb Hct MCV MCH MCHC RDW Plt Count Manual Plt Count MPV Neut % (Auto) Lymph % (Auto) Crenshaw % (Auto) Eos % (Auto) Baso % (Auto) Neut # (Auto) Lymph # (Auto) Crenshaw # (Auto) Eos # (Auto) Baso # (Auto) Neutrophils % (Manual) Lymphocytes % (Manual) Monocytes % (Manual) Basophils % (Manual) Platelet Estimate PT 12.1 INR 1.1 APTT 62 H D Sodium Potassium Chloride Carbon Dioxide Anion Gap BUN Creatinine Est GFR ( Amer) Est GFR (Non-Af Amer) POC Glucose (mg/dL) Random Glucose Calcium Phosphorus Magnesium Total Bilirubin AST ALT Alkaline Phosphatase Total Protein Albumin Globulin Albumin/Globulin Ratio Assessment & Plan (1) Thrombocytopenia Assessment and Plan: 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 Status: Acute
[2018-09-03] MEDS: Levothyroxine 125 MCG TAB PO SCH (05:44)
[2018-09-03 06:11] LABS: BASO # 0.1 K/uL (0.0-0.2); BASO % 0.7 % (0.0-2.0); EOS % 0.1 % (0.0-4.0); LYMPH # 0.3 K/uL (1.0-4.3); LYMPH % 3.8 % (20.0-40.0); MEAN CORPUSCULAR HEMOGLOBIN 27.7 pg (27.0-31.0); MEAN CORPUSCULAR HGB CONC 33.8 g/dL (33.0-37.0); MEAN PLATELET VOLUME 9.9 fL (7.2-11.7); MONO # 0.6 K/uL (0.0-0.8); MONO % 7.7 % (0.0-10.0); NEUT % 87.7 % (50.0-75.0); NRBC % 0.1 % (0.0-2.0); PLATELET COUNT 68 K/uL (130-400); RBC 4.71 Mil/uL (4.40-5.90); RED CELL DISTRIBUTION WIDTH 15.1 % (11.5-14.5)
[2018-09-03 06:21] LABS: INR 1.2; PROTHROMBIN TIME 13.1 SECONDS (9.7-12.2)
[2018-09-03 06:54] LABS: ALB/GLOB RATIO 1.3 (1.0-2.1); ALBUMIN 3.4 g/dL (3.5-5.0); ALT/SGPT 27 U/L (21-72); AST/SGOT 19 U/L (17-59); BLOOD UREA NITROGEN 21 mg/dL (9-20); CALCIUM 8.1 mg/dl (8.6-10.4); GFR NON-AFRICAN AMERICAN > 60
[2018-09-03 08:17] LABS: LYMPHOCYTE 5 % (20-40); MONOCYTE 5 % (0-10); NEUTROPHIL 90 % (50-75); PLATELET ESTIMATE DECREASED (NORMAL); TOTAL CELLS COUNTED 100
[2018-09-03] MEDS: (Novolin R) Insulin Human Regular 100 units/ml vial SC SCH ×5 (08:32→21:56)
[2018-09-03] MEDS: Pantoprazole 40 mg EC Tab PO SCH (09:08)
--- NOTE | 2018-09-03 09:19 | CP.PCM.PN ---
Subjective - Date & Time of Evaluation Date of Evaluation: 09/03/18 Time of Evaluation: 09:00 - Subjective Subjective: Patient was seen and examined by me. He reported no acute events overnight. He says he feels well. He denied chest pain, denied shortness of breath, denied headache, denied palpitation. He had two drug eluting stents placed yesterday to the LAD and RCA. Now off of the heparin ggt. Patient remains on Plavix, BB, Statin, and ARB For atrial fibrillation will start Eliquis PO BID Objective - Vital Signs/Intake and Output Vital Signs (last 24 hours): Temp Pulse Resp BP Pulse Ox 97.5 F L 84 15 143/125 H 93 L 09/03/18 04:00 09/03/18 08:55 09/03/18 07:52 09/03/18 08:55 09/03/18 08:55 Intake and Output: 09/03/18 09/03/18 06:59 18:59 Intake Total 340 Output Total 1050 Balance -710 - Medications Medications: Current Medications Alprazolam (Xanax) 0.25 mg PO TID PRN PRN Reason: Anxiety Stop: 09/06/18 12:26 Last Admin: 09/02/18 10:43 Dose: 0.25 mg Alprazolam (Xanax) 0.25 mg PO ONCE PRN PRN Reason: Anxiety Stop: 09/08/18 17:38 Last Admin: 09/02/18 23:18 Dose: 0.25 mg Aspirin (Ecotrin) 81 mg PO DAILY [facility] Last Admin: 09/03/18 09:07 Dose: 81 mg Benzocaine/Menthol (Cepacol Sore Throat) 1 cinthia MT Q4H PRN PRN Reason: Sore Throat Last Admin: 09/02/18 05:33 Dose: 1 cinthia Carvedilol (Coreg) 12.5 mg PO BID [facility] Last Admin: 09/02/18 21:54 Dose: 12.5 mg Clopidogrel Bisulfate (Plavix) 75 mg PO DAILY [facility] Last Admin: 09/03/18 09:07 Dose: 75 mg Dextrose (Dextrose 50% Inj) 0 ml IV STAT PRN; Protocol PRN Reason: Hypoglycemia Protocol Dextrose (Glutose 15) 0 gm PO ONCE PRN; Protocol PRN Reason: Hypoglycemia Protocol Enoxaparin Sodium (Lovenox) 40 mg SC DAILY [facility] Last Admin: 09/03/18 09:08 Dose: 40 mg Glimepiride (Amaryl) 1 mg PO DAILY [facility] Last Admin: 09/01/18 10:15 Dose: 1 mg Glucagon (Glucagen Diagnostic Kit) 0 mg IM STAT PRN; Protocol PRN Reason: Hypoglycemia Protocol Dextrose (Dextrose 5% In Water 1000 Ml) 1,000 mls @ 0 mls/hr IV .Q0M PRN; Protocol PRN Reason: Hypoglycemia Protocol Insulin Human Regular (Novolin R) 0 unit SC [facility]; Protocol Last Admin: 09/03/18 08:32 Dose: 3 units Levothyroxine Sodium (Synthroid) 125 mcg PO DAILY@0630 [facility] Last Admin: 09/03/18 05:44 Dose: 125 mcg Losartan Potassium (Cozaar) 100 mg PO DAILY [facility] Last Admin: 09/03/18 09:07 Dose: 100 mg Nitroglycerin (Nitrostat Sl Tab) 0.4 mg SL Q5M PRN PRN Reason: Pain, Mild (1-3) Pantoprazole Sodium (Protonix Ec Tab) 40 mg PO DAILY [facility] Last Admin: 09/03/18 09:08 Dose: 40 mg Rosuvastatin Calcium (Crestor) 10 mg PO HS [facility] Last Admin: 09/02/18 21:54 Dose: 10 mg Tamsulosin HCl (Flomax) 0.4 mg PO DAILY [facility] Last Admin: 09/03/18 09:08 Dose: 0.4 mg - Labs Labs: 09/03/18 06:05 09/03/18 06:03 PT 13.1 SECONDS (9.7-12.2) H 09/03/18 06:05 INR 1.2 09/03/18 06:05 APTT 62 SECONDS (21-34) H D 09/02/18 06:04 - Constitutional Appears: No Acute Distress - Head Exam Head Exam: NORMAL INSPECTION - Eye Exam Eye Exam: Normal appearance - ENT Exam ENT Exam: Mucous Membranes Moist - Respiratory Exam Respiratory Exam: Clear to Ausculation Bilateral, NORMAL BREATHING PATTERN - GI/Abdominal Exam GI & Abdominal Exam: Soft, Normal Bowel Sounds - Extremities Exam Additional comments: Area of the catherization at femoral area is non tender, no bleeding, clean, dry. - Neurological Exam Neurological Exam: Alert, Awake, Oriented x3 Neuro motor strength exam: Left Upper Extremity: 5, Right Upper Extremity: 5 - Psychiatric Exam Psychiatric exam: Normal Affect, Normal Mood - Skin Skin Exam: Normal Color, Warm Assessment and Plan - Assessment and Plan (Free Text) Assessment: 1. Unstable Angina and S/P catherization LVEF 40%, 99% LAD, 80% RCA 09/03 S/P two BRIAN stent placement. Will need to be on plavix and ASA, and statin and BB. Now off of heparin ggt. 09/02: Currently remains on Plavix, ASA, and Heparin ggt. The platelets are low and hematology was consulted. This morning are 75. [place] potential [place] [facility] [place] has low platelets,History of low platelets.Patient not aware of any platelet issues Discussed with Dr Mccall. 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 He agrees with continue heparin,plavix and asprin and monitor platelets per Dr Mccall patient should be ok to go for PCI .HIT panel ordered Continue Asprin, Plavix ,Coreg 12.5 bid ,Crestor and Cozaar 2. Atrial fibrillation 09/03: Start Eliquis PO BID 2.5 monitor for bleeding. 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 Thrombocytopenia Per Hematology consult will check HIV and Hepatitis 3. Hypertension Cozaar 100mg PO QD,coreg 5. DM-2 Accuchecks ACHS with insulin coverage 6. Hypothyroidism Synthroid 125mg PO QD 7. Hyperlipidemia Crestor 10mg PO HS Prophylaxis: Protonix 40mg and on heparin
[2018-09-03] MEDS ORDERED: Enoxaparin 40 mg Syringe SC SCH (10:00)
[2018-09-03] MEDS ORDERED: Psyllium Packet PO ONE (10:30)
--- NOTE | 2018-09-03 12:11 | CP.CCUPN ---
CCU Subjective - Physician Review Subjective (Free Text): 09/03/18 12:08 PGY-1 Critical Care Progress Note for Dr. Jacobs Patient seen and examined at bedside this AM s/p PCI yesterday w/ 2 BRIAN placement in the LAD. Patient in no acute distress, denies any chest pain or palpitations. 12 pt ROS reviewed and otherwise negative. Hemodynamically stable for downgrade to telemetry. Critical Care Time Spent (in minutes): 35 CCU Objective - Vital Signs / Intake & Output Vital Signs (Last 4 hours): Vital Signs Pulse BP Pulse Ox 09/03/18 09:19 150/80 09/03/18 08:55 84 143/125 H 93 L Intake and Output (Last 8hrs): Intake & Output 09/02/18 09/03/18 09/03/18 22:59 06:59 14:59 Intake Total 240 100 Output Total 400 650 Balance -160 -550 Weight 184 lb 12.8 oz Intake: Oral 240 100 Output: Urine 400 650 Urine, Voided 400 650 - Physical Exam Head: Positive for: Atraumatic, Normocephalic Pupils: Positive for: PERRL Extroacular Muscles: Positive for: EOMI Conjunctiva: Positive for: Normal Mouth: Positive for: Moist Mucous Membranes Neck: Positive for: Normal Range of Motion Respiratory/Chest: Positive for: Clear to Auscultation, Good Air Exchange. Negative for: Respiratory Distress, Accessory Muscle Use, Wheezes, Rales, Retracting, Rhonchi Cardiovascular: Positive for: Regular Rate and Rhythm, Normal S1, S2 Abdomen: Positive for: Normal Bowel Sounds. Negative for: Tenderness, Distention, Peritoneal Signs, Rebound, Guarding, Mass/Organomegaly Upper Extremity: Positive for: Normal Inspection, Normal ROM, NORMAL PULSES, Neurovascularly Intact, Capillary Refill < 2s. Negative for: Cyanosis, Edema, Tenderness, Swelling, Erythema Lower Extremity: Positive for: Normal Inspection, NORMAL PULSES, Normal ROM, Neurovascularly Intact, Capillary Refill < 2 s. Negative for: Edema, CALF TENDERNESS, Cyanosis Neurological: Positive for: CN II-XII Intact, Speech Normal Skin: Positive for: Warm, Dry, Normal Color. Negative for: Rashes Psychiatric: Positive for: Alert, Oriented x 3, Normal Insight, Normal Concentration - Medications Active Medications: Active Medications Generic Name Dose Route Start Last Admin Trade Name Freq PRN Reason Stop Dose Admin Alprazolam 0.25 mg 08/30/18 12:25 09/02/18 10:43 Xanax PO 09/06/18 12:26 0.25 mg TID PRN Administration Anxiety Alprazolam 0.25 mg 09/01/18 17:37 09/02/18 23:18 Xanax PO 09/08/18 17:38 0.25 mg ONCE PRN Administration Anxiety Aspirin 81 mg 08/31/18 10:00 09/03/18 09:07 Ecotrin PO 81 mg DAILY [facility] Administration Benzocaine/Menthol 1 cinthia 08/30/18 18:41 09/02/18 05:33 Cepacol Sore Throat MT 1 cinthia Q4H PRN Administration Sore Throat Carvedilol 12.5 mg 08/30/18 18:00 09/03/18 09:19 Coreg PO 12.5 mg BID [facility] Administration Clopidogrel Bisulfate 75 mg 08/31/18 10:00 09/03/18 09:07 Plavix PO 75 mg DAILY [facility] Administration Dextrose 0 ml 08/30/18 12:27 Dextrose 50% Inj IV STAT PRN Hypoglycemia Protocol Protocol Dextrose 0 gm 08/30/18 12:27 Glutose 15 PO ONCE PRN Hypoglycemia Protocol Protocol Enoxaparin Sodium 40 mg 09/03/18 10:00 09/03/18 09:08 Lovenox SC 40 mg DAILY [facility] Administration Fluticasone Propionate 0 spr 09/03/18 20:00 Flonase GOSIA RBID [facility] Glimepiride 1 mg 08/31/18 10:00 09/01/18 10:15 Amaryl PO 1 mg DAILY [facility] Administration Glucagon 0 mg 08/30/18 12:28 Glucagen Diagnostic Kit IM STAT PRN Hypoglycemia Protocol Protocol Dextrose 1,000 mls @ 0 mls/hr 08/30/18 12:26 Dextrose 5% In Water 1000 Ml IV .Q0M PRN Hypoglycemia Protocol Protocol Per Protocol Insulin Human Regular 0 unit 09/02/18 16:30 09/03/18 08:32 Novolin R SC 3 units ACHS [facility] Administration Protocol Levothyroxine Sodium 125 mcg 08/31/18 06:30 09/03/18 05:44 Synthroid PO 125 mcg DAILY@0630 [facility] Administration Losartan Potassium 100 mg 08/31/18 10:00 09/03/18 09:07 Cozaar PO 100 mg DAILY [facility] Administration Nitroglycerin 0.4 mg 08/31/18 09:13 Nitrostat Sl Tab SL Q5M PRN Pain, Mild (1-3) Pantoprazole Sodium 40 mg 08/31/18 10:00 09/03/18 09:08 Protonix Ec Tab PO 40 mg DAILY [facility] Administration Rosuvastatin Calcium 10 mg 08/30/18 22:00 09/02/18 21:54 Crestor PO 10 mg HS [facility] Administration Tamsulosin HCl 0.4 mg 08/31/18 10:00 09/03/18 09:08 Flomax PO 0.4 mg DAILY [facility] Administration - Patient Studies Lab Studies: Lab Studies 09/03/18 09/03/18 09/03/18 Range/Units 07:39 06:05 06:05 WBC 8.0 (4.8-10.8) K/uL RBC 4.71 (4.40-5.90) Mil/uL Hgb 13.0 (12.0-18.0) g/dL Hct 38.6 (35.0-51.0) % MCV 82.0 (80.0-94.0) fL MCH 27.7 (27.0-31.0) pg MCHC 33.8 (33.0-37.0) g/dL RDW 15.1 H (11.5-14.5) % Plt Count 68 L (130-400) K/uL MPV 9.9 (7.2-11.7) fL Neut % (Auto) 87.7 H (50.0-75.0) % Lymph % (Auto) 3.8 L (20.0-40.0) % Castro % (Auto) 7.7 (0.0-10.0) % Eos % (Auto) 0.1 (0.0-4.0) % Baso % (Auto) 0.7 (0.0-2.0) % Neut # (Auto) 7.0 (1.8-7.0) K/uL Lymph # (Auto) 0.3 L (1.0-4.3) K/uL Castro # (Auto) 0.6 (0.0-0.8) K/uL Eos # (Auto) 0.0 (0.0-0.7) K/uL Baso # (Auto) 0.1 (0.0-0.2) K/uL Neutrophils % (Manual) 90 H (50-75) % Lymphocytes % (Manual) 5 L (20-40) % Monocytes % (Manual) 5 (0-10) % Platelet Estimate Decreased L (NORMAL) PT 13.1 H (9.7-12.2) SECONDS INR 1.2 Sodium (132-148) mmol/L Potassium (3.6-5.2) mmol/L Chloride (98-107) mmol/L Carbon Dioxide (22-30) mmol/L Anion Gap (10-20) BUN (9-20) mg/dL Creatinine (0.8-1.5) mg/dL Est GFR ( Amer) Est GFR (Non-Af Amer) POC Glucose (mg/dL) 257 H (65-110) mg/dL Random Glucose (75-110) mg/dL Calcium (8.6-10.4) mg/dl Phosphorus (2.5-4.5) mg/dL Magnesium (1.6-2.3) mg/dL Total Bilirubin (0.2-1.3) mg/dL AST (17-59) U/L ALT (21-72) U/L Alkaline Phosphatase (38-126) U/L Total Protein (6.3-8.3) g/dL Albumin (3.5-5.0) g/dL Globulin (2.2-3.9) gm/dL Albumin/Globulin Ratio (1.0-2.1) 09/03/18 09/02/18 09/02/18 Range/Units 06:03 11:04 07:21 WBC (4.8-10.8) K/uL RBC (4.40-5.90) Mil/uL Hgb (12.0-18.0) g/dL Hct (35.0-51.0) % MCV (80.0-94.0) fL MCH (27.0-31.0) pg MCHC (33.0-37.0) g/dL RDW (11.5-14.5) % Plt Count (130-400) K/uL MPV (7.2-11.7) fL Neut % (Auto) (50.0-75.0) % Lymph % (Auto) (20.0-40.0) % Castro % (Auto) (0.0-10.0) % Eos % (Auto) (0.0-4.0) % Baso % (Auto) (0.0-2.0) % Neut # (Auto) (1.8-7.0) K/uL Lymph # (Auto) (1.0-4.3) K/uL Castro # (Auto) (0.0-0.8) K/uL Eos # (Auto) (0.0-0.7) K/uL Baso # (Auto) (0.0-0.2) K/uL Neutrophils % (Manual) (50-75) % Lymphocytes % (Manual) (20-40) % Monocytes % (Manual) (0-10) % Platelet Estimate (NORMAL) PT (9.7-12.2) SECONDS INR Sodium 136 (132-148) mmol/L Potassium 4.5 (3.6-5.2) mmol/L Chloride 101 (98-107) mmol/L Carbon Dioxide 25 (22-30) mmol/L Anion Gap 14 (10-20) BUN 21 H (9-20) mg/dL Creatinine 0.6 L (0.8-1.5) mg/dL Est GFR ( Amer) > 60 Est GFR (Non-Af Amer) > 60 POC Glucose (mg/dL) 191 H 203 H (65-110) mg/dL Random Glucose 251 H (75-110) mg/dL Calcium 8.1 L (8.6-10.4) mg/dl Phosphorus 3.7 (2.5-4.5) mg/dL Magnesium 2.1 (1.6-2.3) mg/dL Total Bilirubin 0.8 (0.2-1.3) mg/dL AST 19 (17-59) U/L ALT 27 (21-72) U/L Alkaline Phosphatase 65 (38-126) U/L Total Protein 6.0 L (6.3-8.3) g/dL Albumin 3.4 L (3.5-5.0) g/dL Globulin 2.6 (2.2-3.9) gm/dL Albumin/Globulin Ratio 1.3 (1.0-2.1) Laboratory Results - last 24 hr 09/02/18 09/02/18 09/03/18 07:21 11:04 06:03 WBC RBC Hgb Hct MCV MCH MCHC RDW Plt Count MPV Neut % (Auto) Lymph % (Auto) Castro % (Auto) Eos % (Auto) Baso % (Auto) Neut # (Auto) Lymph # (Auto) Castro # (Auto) Eos # (Auto) Baso # (Auto) Neutrophils % (Manual) Lymphocytes % (Manual) Monocytes % (Manual) Platelet Estimate PT INR Sodium 136 Potassium 4.5 Chloride 101 Carbon Dioxide 25 Anion Gap 14 BUN 21 H Creatinine 0.6 L Est GFR ( Amer) > 60 Est GFR (Non-Af Amer) > 60 POC Glucose (mg/dL) 203 H 191 H Random Glucose 251 H Calcium 8.1 L Phosphorus 3.7 Magnesium 2.1 Total Bilirubin 0.8 AST 19 ALT 27 Alkaline Phosphatase 65 Total Protein 6.0 L Albumin 3.4 L Globulin 2.6 Albumin/Globulin Ratio 1.3 09/03/18 09/03/18 09/03/18 06:05 06:05 07:39 WBC 8.0 RBC 4.71 Hgb 13.0 Hct 38.6 MCV 82.0 MCH 27.7 MCHC 33.8 RDW 15.1 H Plt Count 68 L MPV 9.9 Neut % (Auto) 87.7 H Lymph % (Auto) 3.8 L Castro % (Auto) 7.7 Eos % (Auto) 0.1 Baso % (Auto) 0.7 Neut # (Auto) 7.0 Lymph # (Auto) 0.3 L Castro # (Auto) 0.6 Eos # (Auto) 0.0 Baso # (Auto) 0.1 Neutrophils % (Manual) 90 H Lymphocytes % (Manual) 5 L Monocytes % (Manual) 5 Platelet Estimate Decreased L PT 13.1 H INR 1.2 Sodium Potassium Chloride Carbon Dioxide Anion Gap BUN Creatinine Est GFR ( Amer) Est GFR (Non-Af Amer) POC Glucose (mg/dL) 257 H Random Glucose Calcium Phosphorus Magnesium Total Bilirubin AST ALT Alkaline Phosphatase Total Protein Albumin Globulin Albumin/Globulin Ratio Fingerstick Blood Sugar Results: 257 Review of Systems - Review of Systems All systems: reviewed and no additional remarkable complaints except Review of Systems: as per HPI Critical Care Progress Note - Nutrition Nutrition: Nutrition Category Date Time Status Heart Healthy Diet [DIET] Diets 11/26/18 Dinner Active Assessment/Plan - Assessment and Plan (Free Text) Assessment: 78 yo M with pmhx of unstable angina, Afib, HTN, systolic CHF with EF 40%, DM, hx tobacco use admitted for unstable angina. S/P cardiac cath with Dr. 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 On ASA, plavix, heparin drip. Patient s/p PCI w/ 2 BRIAN placement. Plan: CV Unstable angina -pt s/p cardiac cath (08/30): LVEF 40%, 99% LAD occlusion, 80% RCA occlusion -s/p PCI w/ 2 BRIAN placement -off heparin ggt -Cardiology (Dr. Ross) recs appreciated: -Plavix, BB, ARB, statin for life. -for A Fib, start Eliquis 2.5 mg po bid tomorrow if no bleeding and cleared by hemotology. Once starting eliquis stop out patient Coumadin and in patient Lovenox. -ASA for 1 month and then d/c (higher risk of bleeding if continued longer with Plavix plus Eliquis). HTN -cozaar, coreg HLD -crestor Hx of Afib -off heparin drip -start eliquis 2.5 mg BID if no bleeding and cleared by heme Pulm -stable, patient in no acute distress Heme Hx of Thrombocytopenia, etiology unclear -PLT 68 -Hematology consulted (Dr. Mccall) -Per Dr. 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 Medically stable for PCI later today -continue to monitor daily PLT -f/u HIT panel Endo DM type II -ISS -accuchecks achs Hypothyroidism -synthroid PPx, Diet, Disposition -off heparin drip -protonix -HHD -dispo: medically stable for telemetry monitoring Case discussed with Dr. Reynaldo Jean-Baptiste DO, PGY-1
--- NOTE | 2018-09-03 16:19 | CP.PCM.PN ---
Subjective - Date & Time of Evaluation Date of Evaluation: 09/03/18 Time of Evaluation: 16:18 - Subjective Subjective: Patient seen and evaluated D/C SQ Lovenox Start Eliquis 2.5 mg po bod Follow [place] If stable d/c tomorrow Transfer to tele Eliquis 2.5 mg po bid and Plavix 75 daily for life ASA 81 daily for 1 month Objective - Vital Signs/Intake and Output Vital Signs (last 24 hours): Temp Pulse Resp BP Pulse Ox 97.5 F L 79 31 H 100/50 L 93 L 09/03/18 04:00 09/03/18 14:51 09/03/18 14:51 09/03/18 14:51 09/03/18 08:55 Intake and Output: 09/03/18 09/03/18 06:59 18:59 Intake Total 340 Output Total 1050 Balance -710 - Medications Medications: Current Medications Alprazolam (Xanax) 0.25 mg PO TID PRN PRN Reason: Anxiety Stop: 09/06/18 12:26 Last Admin: 09/02/18 10:43 Dose: 0.25 mg Alprazolam (Xanax) 0.25 mg PO ONCE PRN PRN Reason: Anxiety Stop: 09/08/18 17:38 Last Admin: 09/02/18 23:18 Dose: 0.25 mg Apixaban (Eliquis) 2.5 mg PO BID [facility] Aspirin (Ecotrin) 81 mg PO DAILY [facility] Last Admin: 09/03/18 09:07 Dose: 81 mg Benzocaine/Menthol (Cepacol Sore Throat) 1 cinthia MT Q4H PRN PRN Reason: Sore Throat Last Admin: 09/02/18 05:33 Dose: 1 cinthia Carvedilol (Coreg) 12.5 mg PO BID [facility] Last Admin: 09/03/18 09:19 Dose: 12.5 mg Clopidogrel Bisulfate (Plavix) 75 mg PO DAILY [facility] Last Admin: 09/03/18 09:07 Dose: 75 mg Dextrose (Dextrose 50% Inj) 0 ml IV STAT PRN; Protocol PRN Reason: Hypoglycemia Protocol Dextrose (Glutose 15) 0 gm PO ONCE PRN; Protocol PRN Reason: Hypoglycemia Protocol Fluticasone Propionate (Flonase) 0 spr GOS[facility] Glimepiride (Amaryl) 1 mg PO DAILY [facility] Last Admin: 09/03/18 12:25 Dose: 1 mg Glucagon (Glucagen Diagnostic Kit) 0 mg IM STAT PRN; Protocol PRN Reason: Hypoglycemia Protocol Dextrose (Dextrose 5% In Water 1000 Ml) 1,000 mls @ 0 mls/hr IV .Q0M PRN; Protocol PRN Reason: Hypoglycemia Protocol Insulin Human Regular (Novolin R) 0 unit SC ACHS [facility]; Protocol Last Admin: 09/03/18 12:32 Dose: 4 units Levothyroxine Sodium (Synthroid) 125 mcg PO DAILY@0630 [facility] Last Admin: 09/03/18 05:44 Dose: 125 mcg Losartan Potassium (Cozaar) 100 mg PO DAILY [facility] Last Admin: 09/03/18 09:07 Dose: 100 mg Nitroglycerin (Nitrostat Sl Tab) 0.4 mg SL Q5M PRN PRN Reason: Pain, Mild (1-3) Pantoprazole Sodium (Protonix Ec Tab) 40 mg PO DAILY [facility] Last Admin: 09/03/18 09:08 Dose: 40 mg Rosuvastatin Calcium (Crestor) 40 mg PO [facility] Tamsulosin HCl (Flomax) 0.4 mg PO DAILY [facility] Last Admin: 09/03/18 09:08 Dose: 0.4 mg - Labs Labs: 09/03/18 06:05 09/03/18 06:03 PT 13.1 SECONDS (9.7-12.2) H 09/03/18 06:05 INR 1.2 09/03/18 06:05 APTT 62 SECONDS (21-34) H D 09/02/18 06:04
[2018-09-03 18:57] LABS: HEPATITIS B SURFACE AG Negative (NEGATIVE)
[2018-09-03 19:03] LABS: HEPATITIS A IGM NEGATIVE (NEGATIVE); HEPATITIS B CORE AB NEGATIVE (NEGATIVE)
[2018-09-03 19:14] LABS: HEPATITIS C ANTIBODY NEGATIVE (NEGATIVE)
[2018-09-03] MEDS ORDERED: Fluticasone Nasal 50 mcg/Spray NAS SCH (20:00)
--- NOTE | 2018-09-03 21:33 | CP.PCM.PN ---
Subjective - Date & Time of Evaluation Date of Evaluation: 09/03/18 Time of Evaluation: 15:00 - Subjective Subjective: No complaints. Objective - Vital Signs/Intake and Output Vital Signs (last 24 hours): Temp Pulse Resp BP Pulse Ox 97.5 F L 83 19 104/50 L 93 L 09/03/18 16:00 09/03/18 19:56 09/03/18 19:56 09/03/18 19:56 09/03/18 08:55 Intake and Output: 09/03/18 09/04/18 18:59 06:59 Intake Total 250 Output Total 850 Balance -600 - Medications Medications: Current Medications Alprazolam (Xanax) 0.25 mg PO TID PRN PRN Reason: Anxiety Stop: 09/06/18 12:26 Last Admin: 09/02/18 10:43 Dose: 0.25 mg Alprazolam (Xanax) 0.25 mg PO ONCE PRN PRN Reason: Anxiety Stop: 09/08/18 17:38 Last Admin: 09/02/18 23:18 Dose: 0.25 mg Apixaban (Eliquis) 2.5 mg PO BID [facility] Last Admin: 09/03/18 17:29 Dose: 2.5 mg Aspirin (Ecotrin) 81 mg PO DAILY [facility] Last Admin: 09/03/18 09:07 Dose: 81 mg Benzocaine/Menthol (Cepacol Sore Throat) 1 cinthia MT Q4H PRN PRN Reason: Sore Throat Last Admin: 09/02/18 05:33 Dose: 1 cinthia Carvedilol (Coreg) 12.5 mg PO BID [facility] Last Admin: 09/03/18 17:29 Dose: 12.5 mg Clopidogrel Bisulfate (Plavix) 75 mg PO DAILY [facility] Last Admin: 09/03/18 09:07 Dose: 75 mg Dextrose (Dextrose 50% Inj) 0 ml IV STAT PRN; Protocol PRN Reason: Hypoglycemia Protocol Dextrose (Glutose 15) 0 gm PO ONCE PRN; Protocol PRN Reason: Hypoglycemia Protocol Fluticasone Propionate (Flonase) 0 spr GOSIA RBID [facility] Glimepiride (Amaryl) 1 mg PO DAILY [facility] Last Admin: 09/03/18 12:25 Dose: 1 mg Glucagon (Glucagen Diagnostic Kit) 0 mg IM STAT PRN; Protocol PRN Reason: Hypoglycemia Protocol Dextrose (Dextrose 5% In Water 1000 Ml) 1,000 mls @ 0 mls/hr IV .Q0M PRN; Protocol PRN Reason: Hypoglycemia Protocol Insulin Human Regular (Novolin R) 0 unit SC ACHS [facility]; Protocol Last Admin: 09/03/18 16:49 Dose: 2 units Levothyroxine Sodium (Synthroid) 125 mcg PO DAILY@0630 [facility] Last Admin: 09/03/18 05:44 Dose: 125 mcg Losartan Potassium (Cozaar) 100 mg PO DAILY [facility] Last Admin: 09/03/18 09:07 Dose: 100 mg Nitroglycerin (Nitrostat Sl Tab) 0.4 mg SL Q5M PRN PRN Reason: Pain, Mild (1-3) Pantoprazole Sodium (Protonix Ec Tab) 40 mg PO DAILY [facility] Last Admin: 09/03/18 09:08 Dose: 40 mg Rosuvastatin Calcium (Crestor) 40 mg PO [facility] Tamsulosin HCl (Flomax) 0.4 mg PO DAILY [facility] Last Admin: 09/03/18 09:08 Dose: 0.4 mg - Labs Labs: 09/03/18 06:05 09/03/18 06:03 PT 13.1 SECONDS (9.7-12.2) H 09/03/18 06:05 INR 1.2 09/03/18 06:05 APTT 62 SECONDS (21-34) H D 09/02/18 06:04 - Head Exam Head Exam: ATRAUMATIC - Eye Exam Eye Exam: Normal appearance - ENT Exam ENT Exam: Mucous Membranes Dry - Respiratory Exam Respiratory Exam: NORMAL BREATHING PATTERN - Cardiovascular Exam Cardiovascular Exam: +S1, +S2 - GI/Abdominal Exam GI & Abdominal Exam: Normal Bowel Sounds Assessment and Plan (1) Thrombocytopenia Assessment & Plan: mild ?ITP no evidence of HIT okay to use antiplatelets and anticoagulation if plt > 50,000 Status: Acute
[2018-09-04 05:54] LABS: BASO % 0.5 % (0.0-2.0); EOS % 0.1 % (0.0-4.0); HEMOGLOBIN 12.4 g/dL (12.0-18.0); LYMPH # 0.6 K/uL (1.0-4.3); LYMPH % 8.8 % (20.0-40.0); MEAN CELL VOLUME 81.7 fL (80.0-94.0); MEAN CORPUSCULAR HEMOGLOBIN 27.4 pg (27.0-31.0); MEAN CORPUSCULAR HGB CONC 33.5 g/dL (33.0-37.0); MEAN PLATELET VOLUME 9.2 fL (7.2-11.7); MONO # 1.4 K/uL (0.0-0.8); MONO % 19.6 % (0.0-10.0); NRBC % 0.2 % (0.0-2.0); PLATELET COUNT 65 K/uL (130-400); RBC 4.53 Mil/uL (4.40-5.90); RED CELL DISTRIBUTION WIDTH 15.2 % (11.5-14.5)
[2018-09-04] MEDS: Levothyroxine 125 MCG TAB PO SCH (06:09)
[2018-09-04 06:20] LABS: ALB/GLOB RATIO 1.4 (1.0-2.1); ALBUMIN 3.4 g/dL (3.5-5.0); ALT/SGPT 30 U/L (21-72); AST/SGOT 23 U/L (17-59); BLOOD UREA NITROGEN 20 mg/dL (9-20); CALCIUM 8.3 mg/dl (8.6-10.4); GFR NON-AFRICAN AMERICAN > 60
[2018-09-04] MEDS: (Novolin R) Insulin Human Regular 100 units/ml vial SC SCH ×3 (07:52→16:39)
[2018-09-04 08:45] LABS: LYMPHOCYTE 11 % (20-40); MONOCYTE 21 % (0-10); NEUTROPHIL 68 % (50-75); PLATELET ESTIMATE DECREASED (NORMAL); TOTAL CELLS COUNTED 100
[2018-09-04 08:46] LABS: LARGE PLATELETS PRESENT
[2018-09-04] MEDS: Pantoprazole 40 mg EC Tab PO SCH (10:36)
[2018-09-04] MEDS ORDERED: Fluticasone Nasal 50 mcg/Spray NAS SCH (10:45)
--- NOTE | 2018-09-04 13:11 | CP.PCM.PN ---
<Dotty Way - Last Filed: 09/04/18 13:02> Subjective - Date & Time of Evaluation Date of Evaluation: 09/04/18 Time of Evaluation: 13:12 - Subjective Subjective: Cardiology Follow Up Note Patient was seen and examined at bedside. Patient reports he feels well. Denied chest pain, shortness of breath, or palpitations. Objective - Vital Signs/Intake and Output Vital Signs (last 24 hours): Temp Pulse Resp BP Pulse Ox 97.8 F 91 H 20 134/65 98 09/04/18 00:00 09/04/18 11:28 09/04/18 11:28 09/04/18 11:28 09/04/18 08:00 Intake and Output: 09/04/18 09/04/18 06:59 18:59 Intake Total 300 150 Output Total 500 400 Balance -200 -250 - Medications Medications: Current Medications Alprazolam (Xanax) 0.25 mg PO TID PRN PRN Reason: Anxiety Stop: 09/06/18 12:26 Last Admin: 09/03/18 22:05 Dose: 0.25 mg Alprazolam (Xanax) 0.25 mg PO ONCE PRN PRN Reason: Anxiety Stop: 09/08/18 17:38 Last Admin: 09/02/18 23:18 Dose: 0.25 mg Apixaban (Eliquis) 2.5 mg PO BID [facility] Last Admin: 09/04/18 10:37 Dose: 2.5 mg Aspirin (Ecotrin) 81 mg PO DAILY [facility] Last Admin: 09/04/18 10:36 Dose: 81 mg Benzocaine/Menthol (Cepacol Sore Throat) 1 cinthia MT Q4H PRN PRN Reason: Sore Throat Last Admin: 09/02/18 05:33 Dose: 1 cinthia Carvedilol (Coreg) 12.5 mg PO BID [facility] Last Admin: 09/04/18 10:41 Dose: 12.5 mg Clopidogrel Bisulfate (Plavix) 75 mg PO DAILY [facility] Last Admin: 09/04/18 10:36 Dose: 75 mg Dextrose (Dextrose 50% Inj) 0 ml IV STAT PRN; Protocol PRN Reason: Hypoglycemia Protocol Dextrose (Glutose 15) 0 gm PO ONCE PRN; Protocol PRN Reason: Hypoglycemia Protocol Fluticasone Propionate (Flonase) 1 spr GOSIA BID [facility] Last Admin: 09/04/18 10:52 Dose: 1 spr Glimepiride (Amaryl) 1 mg PO DAILY [facility] Last Admin: 09/04/18 10:36 Dose: 1 mg Glucagon (Glucagen Diagnostic Kit) 0 mg IM STAT PRN; Protocol PRN Reason: Hypoglycemia Protocol Dextrose (Dextrose 5% In Water 1000 Ml) 1,000 mls @ 0 mls/hr IV .Q0M PRN; Protocol PRN Reason: Hypoglycemia Protocol Insulin Human Regular (Novolin R) 0 unit SC ACHS [facility]; Protocol Last Admin: 09/04/18 11:47 Dose: 5 units Levothyroxine Sodium (Synthroid) 125 mcg PO DAILY@0630 [facility] Last Admin: 09/04/18 06:09 Dose: 125 mcg Losartan Potassium (Cozaar) 100 mg PO DAILY [facility] Last Admin: 09/04/18 10:36 Dose: 100 mg Nitroglycerin (Nitrostat Sl Tab) 0.4 mg SL Q5M PRN PRN Reason: Pain, Mild (1-3) Pantoprazole Sodium (Protonix Ec Tab) 40 mg PO DAILY [facility] Last Admin: 09/04/18 10:36 Dose: 40 mg Rosuvastatin Calcium (Crestor) 40 mg PO HS [facility] Last Admin: 09/03/18 22:06 Dose: 40 mg Tamsulosin HCl (Flomax) 0.4 mg PO DAILY [facility] Last Admin: 09/04/18 10:37 Dose: 0.4 mg - Labs Labs: 09/04/18 05:42 09/04/18 05:42 PT 13.1 SECONDS (9.7-12.2) H 09/03/18 06:05 INR 1.2 09/03/18 06:05 APTT 62 SECONDS (21-34) H D 09/02/18 06:04 - Constitutional Appears: No Acute Distress - Head Exam Head Exam: NORMAL INSPECTION, NORMOCEPHALIC - Eye Exam Eye Exam: EOMI, Normal appearance, PERRL Pupil Exam: NORMAL ACCOMODATION - ENT Exam ENT Exam: Mucous Membranes Moist - Respiratory Exam Respiratory Exam: Clear to Ausculation Bilateral, NORMAL BREATHING PATTERN - Cardiovascular Exam Cardiovascular Exam: +S1, +S2 - GI/Abdominal Exam GI & Abdominal Exam: Soft, Normal Bowel Sounds. absent: Distended, Tenderness, Diminished Bowel Sounds - Extremities Exam Extremities Exam: Normal Inspection. absent: Pedal Edema, Tenderness - Neurological Exam Neurological Exam: Awake, Oriented x3 - Psychiatric Exam Psychiatric exam: Normal Affect, Normal Mood - Skin Skin Exam: Dry, Intact, Normal Color, Warm Assessment and Plan - Assessment and Plan (Free Text) Plan: CAD s/p 2 BRIAN (LAD, RCA) Atrial Fibrillation Management: - Patient is cleared by cardiology for discharge - Patient to take Aspirin 81mg by mouth daily for 1 month only (08/31/18 - 09/30/18). - Continue with Plavix 75mg by mouth daily and Eliquis 2.5mg by mouth twice a day for life. - Continue with Coreg 3.125 by mouth twice a day, Cozaar 100mg by mouth daily, and Crestor 40mg by mouth at night - Please follow up with Dr. Ross on 09/13/18 at 4PM. Case discussed with Dr. Ross, Dotty Way DO, PGY2 <Marco A Ross - Last Filed: 09/04/18 22:45> Objective - Vital Signs/Intake and Output Vital Signs (last 24 hours): Temp Pulse Resp BP Pulse Ox 98.0 F 89 18 137/72 96 09/04/18 16:00 09/04/18 16:30 09/04/18 16:00 09/04/18 16:00 09/04/18 16:00 Intake and Output: 09/04/18 09/05/18 18:59 06:59 Intake Total 350 Output Total 700 Balance -350 - Labs Labs: 09/04/18 05:42 09/04/18 05:42 PT 13.1 SECONDS (9.7-12.2) H 09/03/18 06:05 INR 1.2 09/03/18 06:05 APTT 62 SECONDS (21-34) H D 09/02/18 06:04 Assessment and Plan - Assessment and Plan (Free Text) Plan: Patient seen and evaluated personally by me Plan of care d/w the resident and as documented
--- NOTE | 2018-09-04 14:02 | CP.PCM.DIS ---
<Naren Rapp - Last Filed: 09/04/18 13:50> Provider - Provider Date of Admission: 08/30/18 10:26 Attending physician: Artis Mccoy MD Consults: Dr. Cody Mccall Time Spent in preparation of Discharge (in minutes): 45 Hospital Course - Lab Results Lab Results: Most Recent Lab Values WBC 7.0 K/uL (4.8-10.8) 09/04/18 05:42 RBC 4.53 Mil/uL (4.40-5.90) 09/04/18 05:42 Hgb 12.4 g/dL (12.0-18.0) 09/04/18 05:42 Hct 37.0 % (35.0-51.0) 09/04/18 05:42 MCV 81.7 fL (80.0-94.0) 09/04/18 05:42 MCH 27.4 pg (27.0-31.0) 09/04/18 05:42 MCHC 33.5 g/dL (33.0-37.0) 09/04/18 05:42 RDW 15.2 % (11.5-14.5) H 09/04/18 05:42 Plt Count 65 K/uL (130-400) L 09/04/18 05:42 Manual Plt Count 73 K/uL (130-400) L 09/03/18 16:41 MPV 9.2 fL (7.2-11.7) 09/04/18 05:42 Neut % (Auto) 71.0 % (50.0-75.0) 09/04/18 05:42 Lymph % (Auto) 8.8 % (20.0-40.0) L 09/04/18 05:42 Tillman % (Auto) 19.6 % (0.0-10.0) H 09/04/18 05:42 Eos % (Auto) 0.1 % (0.0-4.0) 09/04/18 05:42 Baso % (Auto) 0.5 % (0.0-2.0) 09/04/18 05:42 Neut # (Auto) 5.0 K/uL (1.8-7.0) 09/04/18 05:42 Lymph # (Auto) 0.6 K/uL (1.0-4.3) L 09/04/18 05:42 Tillman # (Auto) 1.4 K/uL (0.0-0.8) H 09/04/18 05:42 Eos # (Auto) 0.0 K/uL (0.0-0.7) 09/04/18 05:42 Baso # (Auto) 0.0 K/uL (0.0-0.2) 09/04/18 05:42 Neutrophils % (Manual) 68 % (50-75) 09/04/18 05:42 Lymphocytes % (Manual) 11 % (20-40) L 09/04/18 05:42 Monocytes % (Manual) 21 % (0-10) H 09/04/18 05:42 Eosinophils % (Manual) 1 % (0-4) 08/30/18 11:07 Basophils % (Manual) 1 % (0-2) 09/02/18 06:04 Platelet Estimate Decreased (NORMAL) L 09/04/18 05:42 Large Platelets Present 09/04/18 05:42 RBC Morphology Normal 08/30/18 11:07 Polychromasia Slight 08/31/18 06:23 Anisocytosis (manual) Slight 09/01/18 13:03 PT 13.1 SECONDS (9.7-12.2) H 09/03/18 06:05 INR 1.2 09/03/18 06:05 APTT 62 SECONDS (21-34) H D 09/02/18 06:04 Sodium 138 mmol/L (132-148) 09/04/18 05:42 Potassium 3.8 mmol/L (3.6-5.2) 09/04/18 05:42 Chloride 104 mmol/L (98-107) 09/04/18 05:42 Carbon Dioxide 27 mmol/L (22-30) 09/04/18 05:42 Anion Gap 11 (10-20) 09/04/18 05:42 BUN 20 mg/dL (9-20) 09/04/18 05:42 Creatinine 0.6 mg/dL (0.8-1.5) L 09/04/18 05:42 Est GFR ( Amer) > 60 09/04/18 05:42 Est GFR (Non-Af Amer) > 60 09/04/18 05:42 POC Glucose (mg/dL) 351 mg/dL (65-110) H 09/04/18 11:15 Random Glucose 190 mg/dL (75-110) H 09/04/18 05:42 Hemoglobin A1c 6.9 % (4.2-6.5) H 08/30/18 11:26 Calcium 8.3 mg/dl (8.6-10.4) L 09/04/18 05:42 Phosphorus 2.4 mg/dL (2.5-4.5) L 09/04/18 05:42 Magnesium 2.0 mg/dL (1.6-2.3) 09/04/18 05:42 Total Bilirubin 0.8 mg/dL (0.2-1.3) 09/04/18 05:42 AST 23 U/L (17-59) 09/04/18 05:42 ALT 30 U/L (21-72) 09/04/18 05:42 Alkaline Phosphatase 79 U/L (38-126) 09/04/18 05:42 Total Creatine Kinase 39 U/L (55-170) L 08/31/18 03:29 CK-MB (Mass) 0.80 ng/mL (0.0-3.38) 08/31/18 03:29 Troponin I < 0.0120 ng/mL (0.00-0.120) 08/31/18 03:29 Total Protein 5.8 g/dL (6.3-8.3) L 09/04/18 05:42 Albumin 3.4 g/dL (3.5-5.0) L 09/04/18 05:42 Globulin 2.4 gm/dL (2.2-3.9) 09/04/18 05:42 Albumin/Globulin Ratio 1.4 (1.0-2.1) 09/04/18 05:42 Triglycerides 157 mg/dL (0-149) H 08/30/18 11:07 Cholesterol 104 mg/dL (0-199) 08/30/18 11:07 LDL Cholesterol Direct 65 mg/dL (0-129) 08/30/18 11:07 HDL Cholesterol 24 mg/dL (30-70) L 08/30/18 11:07 UF Heparin Interp Negative (Negative) 09/01/18 13:03 Free T4 1.65 ng/dL (0.78-2.19) 08/30/18 18:40 TSH 3rd Generation 1.37 mIU/L (0.46-4.68) 08/30/18 11:07 Heparin-induced Plt Ab Negative (Negative) 09/01/18 13:03 CHASE UFH Low Dose 0.1 0 % Release 09/01/18 13:03 CHASE UFH Low Dose 0.5 0 % Release 09/01/18 13:03 CHASE UFH High Dose 100 0 % Release 09/01/18 13:03 Hepatitis A IgM Ab Negative (NEGATIVE) 09/03/18 16:41 Hep Bs Antigen Negative (NEGATIVE) 09/03/18 16:41 Hep B Core IgM Ab Negative (NEGATIVE) 09/03/18 16:41 Hepatitis C Antibody Negative (NEGATIVE) 09/03/18 16:41 HIV 1&2 Antibody Screen Negative (NEGATIVE) 09/03/18 16:41 Blood Type O POSITIVE 08/30/18 11:07 Antibody Screen Negative 08/30/18 11:07 - Hospital Course Hospital Course: Upon Admission This is a 78 year old male with past medical history of unstable angina with previous abnormal stress test (08/06/18), atrial fibrillation, hypertension, systolic heart failure with LVEF 40%, type 2 diabetes, former heavy tobacco user, hypothyroidism, and BPH, presenting with unstable angina. Patient was ambulating from parking lot to the hospital when he started to have chest pain; patient had cardiac catherization today at [address] Ross. EKG did not show ST elevations or depressions, 1st troponin negative. Patient was given aspirin and plavix, and was brought up to the laborer hoisting. Patient reported his chest pain felt better after receiving medication and once he rested. Denied any current chest pain, shortness of breath, palpitations, abdominal pain, dizziness, nausea, vomiting, diarrhea, or urinary symptoms. Hospital Course Patient was admitted to hospital for chest pain 2/2 unstable angina. Cardiology was consulted and troponins x 3 were negative. EKG did not show ST elevations or depressions. Patient was given Aspirin and Plavix with plans for PCI and possible stent placement. Cardiac cath on 08/30 was done showing occlusions in the LAD and RCA arteries. Treatment consisted of aspirin, plavix, and IV Nitrogylcerin drip which helped the chest pain. Plans were made for PCI at [facility]. Dr. Mccall was consulted for concern of heparin induced thrombocytopenia due to heparin use. No evidence of HIT was found and it was okay to use antiplatelets and anticoagulation if platelets >50,000 as per [place]. Patient had 2 stents placed with instructions from cardiology as described below. Discharge Plan 1. Patient is stable for discharge to home as per Dr. Ross and Dr. Cole. 2. Patient should follow up with Dr. Ross on 09/13/18 at 4:00 pm for followup appointment. Patient should follow up with primary medical doctor within a week of discharge from hospital. 3. Patient will continue taking the following medications: Aspirin 81mg by mouth daily for 1 month only (08/31/18 - 09/30/18), Plavix 75mg by mouth daily and Eliquis 2.5mg by mouth twice a day for life, Coreg 3.125 by mouth twice a day, Cozaar 100mg by mouth daily, and Crestor 40mg by mouth at night. 4. Patient is educated to return to hospital if symptoms worsen or recur. 5. Patient understands the plan as above and agrees. Disclaimer: Written above is a synopsis of patient's current hospital admission. For full report refer to EMR. Discharge Exam - Head Exam Head Exam: NORMAL INSPECTION, NORMOCEPHALIC - Eye Exam Eye Exam: EOMI, Normal appearance. absent: Nystagmus, Scleral icterus - Respiratory Exam Respiratory Exam: NORMAL BREATHING PATTERN. absent: Rales, Rhonchi, Wheezes - Cardiovascular Exam Cardiovascular Exam: REGULAR RHYTHM, +S1, +S2 - GI/Abdominal Exam GI & Abdominal Exam: Normal Bowel Sounds, Soft. absent: Diminished Bowel Sounds, Distended, Firm, Guarding, Tenderness - Neurological Exam Neurological exam: Alert, Oriented x3 - Psychiatric Exam Psychiatric exam: Normal Affect, Normal Mood - Skin Skin Exam: Intact, Normal Color Discharge Plan - Follow Up Plan Condition: STABLE Disposition: HOME/ ROUTINE Patient education suggested?: Yes Instructions: Angina (DC), Medicines for Angina (Chest Pain), Hypertension (DC), Hypertension (GEN) Additional Instructions: 1. Patient is stable for discharge to home as per Dr. Ross and Dr. Cole. 2. Patient should follow up with Dr. Ross on 09/13/18 at 4:00 pm for followup appointment. Patient should follow up with primary medical doctor within a week of discharge from hospital. 3. Patient will continue taking the following medications: Aspirin 81mg by mouth daily for 1 month only (08/31/18 - 09/30/18), Plavix 75mg by mouth daily and Eliquis 2.5mg by mouth twice a day for life, Coreg 3.125 by mouth twice a day, Cozaar 100mg by mouth daily, and Crestor 40mg by mouth at night. All other home medications can be continued as prescribed. 4. Patient is educated to return to hospital if symptoms worsen or recur. 5. Patient understands the plan as above and agrees. <Darshan Cole - Last Filed: 09/04/18 18:36> Provider - Provider Date of Admission: 08/30/18 10:26 Attending physician: Artis Mccoy MD Hospital Course - Lab Results Lab Results: Most Recent Lab Values WBC 7.0 K/uL (4.8-10.8) 09/04/18 05:42 RBC 4.53 Mil/uL (4.40-5.90) 09/04/18 05:42 Hgb 12.4 g/dL (12.0-18.0) 09/04/18 05:42 Hct 37.0 % (35.0-51.0) 09/04/18 05:42 MCV 81.7 fL (80.0-94.0) 09/04/18 05:42 MCH 27.4 pg (27.0-31.0) 09/04/18 05:42 MCHC 33.5 g/dL (33.0-37.0) 09/04/18 05:42 RDW 15.2 % (11.5-14.5) H 09/04/18 05:42 Plt Count 65 K/uL (130-400) L 09/04/18 05:42 Manual Plt Count 73 K/uL (130-400) L 09/03/18 16:41 MPV 9.2 fL (7.2-11.7) 09/04/18 05:42 Neut % (Auto) 71.0 % (50.0-75.0) 09/04/18 05:42 Lymph % (Auto) 8.8 % (20.0-40.0) L 09/04/18 05:42 Tillman % (Auto) 19.6 % (0.0-10.0) H 09/04/18 05:42 Eos % (Auto) 0.1 % (0.0-4.0) 09/04/18 05:42 Baso % (Auto) 0.5 % (0.0-2.0) 09/04/18 05:42 Neut # (Auto) 5.0 K/uL (1.8-7.0) 09/04/18 05:42 Lymph # (Auto) 0.6 K/uL (1.0-4.3) L 09/04/18 05:42 Tillman # (Auto) 1.4 K/uL (0.0-0.8) H 09/04/18 05:42 Eos # (Auto) 0.0 K/uL (0.0-0.7) 09/04/18 05:42 Baso # (Auto) 0.0 K/uL (0.0-0.2) 09/04/18 05:42 Neutrophils % (Manual) 68 % (50-75) 09/04/18 05:42 Lymphocytes % (Manual) 11 % (20-40) L 09/04/18 05:42 Monocytes % (Manual) 21 % (0-10) H 09/04/18 05:42 Eosinophils % (Manual) 1 % (0-4) 08/30/18 11:07 Basophils % (Manual) 1 % (0-2) 09/02/18 06:04 Platelet Estimate Decreased (NORMAL) L 09/04/18 05:42 Large Platelets Present 09/04/18 05:42 RBC Morphology Normal 08/30/18 11:07 Polychromasia Slight 08/31/18 06:23 Anisocytosis (manual) Slight 09/01/18 13:03 PT 13.1 SECONDS (9.7-12.2) H 09/03/18 06:05 INR 1.2 09/03/18 06:05 APTT 62 SECONDS (21-34) H D 09/02/18 06:04 Sodium 138 mmol/L (132-148) 09/04/18 05:42 Potassium 3.8 mmol/L (3.6-5.2) 09/04/18 05:42 Chloride 104 mmol/L (98-107) 09/04/18 05:42 Carbon Dioxide 27 mmol/L (22-30) 09/04/18 05:42 Anion Gap 11 (10-20) 09/04/18 05:42 BUN 20 mg/dL (9-20) 09/04/18 05:42 Creatinine 0.6 mg/dL (0.8-1.5) L 09/04/18 05:42 Est GFR ( Amer) > 60 09/04/18 05:42 Est GFR (Non-Af Amer) > 60 09/04/18 05:42 POC Glucose (mg/dL) 265 mg/dL (65-110) H 09/04/18 16:34 Random Glucose 190 mg/dL (75-110) H 09/04/18 05:42 Hemoglobin A1c 6.9 % (4.2-6.5) H 08/30/18 11:26 Calcium 8.3 mg/dl (8.6-10.4) L 09/04/18 05:42 Phosphorus 2.4 mg/dL (2.5-4.5) L 09/04/18 05:42 Magnesium 2.0 mg/dL (1.6-2.3) 09/04/18 05:42 Total Bilirubin 0.8 mg/dL (0.2-1.3) 09/04/18 05:42 AST 23 U/L (17-59) 09/04/18 05:42 ALT 30 U/L (21-72) 09/04/18 05:42 Alkaline Phosphatase 79 U/L (38-126) 09/04/18 05:42 Total Creatine Kinase 39 U/L (55-170) L 08/31/18 03:29 CK-MB (Mass) 0.80 ng/mL (0.0-3.38) 08/31/18 03:29 Troponin I < 0.0120 ng/mL (0.00-0.120) 08/31/18 03:29 Total Protein 5.8 g/dL (6.3-8.3) L 09/04/18 05:42 Albumin 3.4 g/dL (3.5-5.0) L 09/04/18 05:42 Globulin 2.4 gm/dL (2.2-3.9) 09/04/18 05:42 Albumin/Globulin Ratio 1.4 (1.0-2.1) 09/04/18 05:42 Triglycerides 157 mg/dL (0-149) H 08/30/18 11:07 Cholesterol 104 mg/dL (0-199) 08/30/18 11:07 LDL Cholesterol Direct 65 mg/dL (0-129) 08/30/18 11:07 HDL Cholesterol 24 mg/dL (30-70) L 08/30/18 11:07 UF Heparin Interp Negative (Negative) 09/01/18 13:03 Free T4 1.65 ng/dL (0.78-2.19) 08/30/18 18:40 TSH 3rd Generation 1.37 mIU/L (0.46-4.68) 08/30/18 11:07 Heparin-induced Plt Ab Negative (Negative) 09/01/18 13:03 [facility] Low Dose 0.1 0 % Release 09/01/18 13:03 [facility]FH Low Dose 0.5 0 % Release 09/01/18 13:03 [facility] High Dose 100 0 % Release 09/01/18 13:03 Hepatitis A IgM Ab Negative (NEGATIVE) 09/03/18 16:41 Hep Bs Antigen Negative (NEGATIVE) 09/03/18 16:41 Hep B Core IgM Ab Negative (NEGATIVE) 09/03/18 16:41 Hepatitis C Antibody Negative (NEGATIVE) 09/03/18 16:41 HIV 1&2 Antibody Screen Negative (NEGATIVE) 09/03/18 16:41 Blood Type O POSITIVE 08/30/18 11:07 Antibody Screen Negative 08/30/18 11:07 Attending/Attestation - Attestation I have personally seen and examined this patient.: Yes I have fully participated in the care of the patient.: Yes I have reviewed all pertinent clinical information, including history, physical exam and plan: Yes Notes (Text): 09/04/18 18:29 Medical attending: Patient was seen and examined by me. Agree with the above note by the medical center representative The patient was not in any acute distress when we came and saw him. As documented above, the patient had two BRIAN placed into the RCA and LAD. We emphasized to him that it is very important that he take his medication - in particular the Plavix and Eliquis. Patient understands this and asked that we call these medications into his pharmacy at [facility] and we have. He will also need to take the statin, ARB, and BB as well. He will need followup with cardiology as well as with his primary physician. Darshan Cole
[2018-09-04 17:34] VITALS: BP 137/72; RESP 18; TEMP 98; O2SAT 96
[2018-09-04 17:37] VITALS: PULSE 89
== END 2018-09-04 17:05 | disposition home or self-care (01) | DRG 246 ==
LOC: C.ER 09:58 → C.9E 10:26 → C.9I 13:12
PROVIDERS: ADMIT Internal Medicine; ATTEND Internal Medicine
PROC: 4A023N7 Measurement of Cardiac Sampling and Pressure, Left Heart, Percutaneous Approach (ICD-10-PCS; principal; 2018-08-30)
PROC: B2151ZZ Fluoroscopy of Left Heart using Low Osmolar Contrast (ICD-10-PCS; 2018-08-30)
PROC: B2111ZZ Fluoroscopy of Multiple Coronary Arteries using Low Osmolar Contrast (ICD-10-PCS; 2018-08-30)
PROC: 027035Z Dilation of Coronary Artery, One Artery with Two Drug-eluting Intraluminal Devices, Percutaneous Approach (ICD-10-PCS; 2018-09-02)
DX: I25.110 Atherosclerotic heart disease of native coronary artery with unstable angina pectoris (principal); I50.33 Acute on chronic diastolic (congestive) heart failure; D69.3 Immune thrombocytopenic purpura; I48.91 Unspecified atrial fibrillation; N40.0 Benign prostatic hyperplasia without lower urinary tract symptoms; Z85.820 Personal history of malignant melanoma of skin; Z87.891 Personal history of nicotine dependence; E78.5 Hyperlipidemia, unspecified; I11.0 Hypertensive heart disease with heart failure; E11.9 Type 2 diabetes mellitus without complications; Z79.4 Long term (current) use of insulin; D69.6 Thrombocytopenia, unspecified; E03.9 Hypothyroidism, unspecified; M19.90 Unspecified osteoarthritis, unspecified site